=== PATIENT | male | born 1960 | race Caucasian/White ===

== ENCOUNTER 2016-08-11 18:18 | Emergency (ER) | payer MEDICARE, OTHER ==
[~2016-08-11 18:18] MED LIST: ALBUTEROL 0.5ML INH; ALBUTEROL17 GM; ALPRAZOLAM PO; AMITRYPTYLINE PO; ANTI INFLAM; ANTI-INFLAMMATORY; AUGMENTIN400 MG PO; BACLOFEN10 MG PO; BACTRIM DS TABL1 TA1 PO; BACTRIM DS TABL1 TAB PO; BACTROBAN22 GM TP; BENADRYL; BROMDAY1.7 ML OS; CLOBETASOL 0.0560 GM TOP; COLCHICINE; DAKIN'S MODIF1000 ML EXT; DICLOFENAC PO; DOXYCYCLINE150 MG PO; ENDOCET 5-3251 EACH PO; FLEXERIL PO; FLEXERIL10 MG PO; FLOMAX 0.4 MG PO; HYDROCODON-ACE1 EAC5 PO; IBUPROFEN; IBUPROFEN PO; IBUPROFEN200 M1 PO; INDOMETHACIN50 MG PO; INHALER; KEFLEX500 MG PO; LEVAQUIN PO; LOC PO; LORTAB 10-5001 EACH PO; LORTAB 7.5-5001 TAB PO; LORTAB 7.51 TAB 7.5/ PO; MUPIROCIN15 GM TP; NAFCILLIN SO2 G/VIAL IV; NICOTINE TRANSD21 MG EXT; NORCO 10/325 TA1 TAB PO; NORCO1 TAB 10/3 PO; PAXIL10 MG PO; PAXIL30 MG PO; PERCOCET 5-3251 TAB PO; PERCOCET 51 UDTAB 5/ PO; PERCOCET PO; PERCOCET5/325 PO; PREDNISOLONE AC 1% OS; PREDNISONE PO; PREDNISONE10 MG PO; PREDNISONE5 M1 PO; PROAIR HFA8.5 GM IH; SANTYL15 G1 TP; SILVADENE TOP; SOMA250 MG; SOMA250 MG PO; SPIRIVA18 MCG INH; ULTRAM PO; VICODIN PO; VOLTAREN75 MG PO; ZYVOX600 MG PO
== END 2016-08-11 18:55 | disposition home or self-care (01) ==
LOC: CED 18:18
DX: T81.4XXA Infection following a procedure, initial encounter (principal); N18.9 Chronic kidney disease, unspecified; J44.9 Chronic obstructive pulmonary disease, unspecified; F32.9 Major depressive disorder, single episode, unspecified; F17.200 Nicotine dependence, unspecified, uncomplicated; Z86.14 Personal history of Methicillin resistant Staphylococcus aureus infection; Z88.8 Allergy status to other drugs, medicaments and biological substances
CPT/HCPCS: 99282

== ENCOUNTER 2016-09-11 23:59 | Inpatient (IN) | payer MEDICARE, OTHER ==
--- NOTE | ~2016-09-11 | CR63 ---
[facility] A Service of [facility] RADIOLOGY TEXT RESULTS PATIENT: DELICIA WILSON JR LOCATION: [place] [address] : 56 UNIT #: [id number] AGE: [address]: Dick Jimenez MD SEX: M ORDER DR: [id number] [facility] [address] [facility]. [place], [place] [address] [id number] MR#: [id number] Acc #: [id number] NAME: DELICIA WILSON JR : 1960 SEX: M STUDY DATE/TIME: 09/12/2016 1:22 UNIT: CEDOF ROOM: [id number] STUDY DESCRIPTION: CR Chest 2 View Attending Physician: Dick Jimenez M.D. Ordering Physician: Delicia Rosales P.A.-C. Primary Care Physician: Primary Care Physician No MEDICAL IMAGING REPORT This report is preliminary unless electronic signature is present EXAM PA and lateral chest HISTORY Shortness of air, cough for two days. COMPARISON 09/12/2015. FINDINGS PA and lateral chest view of chest were obtained. Heart size and vascularity are normal. There is healed rib fracture of the left 7th and perhaps 8th ribs. There seems to be some density superimposed upon the left 8th rib suggesting a nodule measuring about 2 cm in diameter. This was not visible on the previous production technician film for the CT scan 03/07/2016 and was not seen on the chest x-ray 08/05/2015. Right lung is clear. There are compression fractures thoracic spine that are stable. IMPRESSION There is about a 2 cm area of focal density in the left mid lung superimposed upon on the left 8th rib that is new from prior studies. It could represent an infiltrate or mass. The most recent study is from May 2016 and I cannot see the abnormality on that exam, so it is likely an inflammatory or infectious process. Follow up chest x-ray to insure clearance or CT scan is recommended. Dictated by... Pete Martinez M.D. THIS IS AN ELECTRONICALLY VERIFIED REPORT [facility] A Service of [facility] RADIOLOGY TEXT RESULTS PATIENT: DELICIA WILSON JR LOCATION: [facility] 238-01 : 56 UNIT #: [id number] AGE: [address]: Dick Jimenez MD SEX: M ORDER DR: Pete Martinez M.D. at 09/12/2016 1:23 PM Jannie TD: 09/12/2016 09:14 JOB #: [id number] MEDICAL IMAGING REPORT Page 1 of 1 COPY
--- NOTE | ~2016-09-11 | CO ---
Unit #: [id number] #: [id number] Patient: DELICIA WILSON JR [id number] [address] [place], [place] [address] [id number] I MR#: [id number] NAME: DELICIA WILSON ROOM: 238 Age: 56 Sex: M Admission Date: 09/12/2016 : 1960 Attending Physician: Dick Jimenez M.D. Primary Care Physician: Meera Johnston M.D. Consultation Date: 09/12/2016 CONSULTATION REPORT REASON FOR EVAL Neutropenic fever; please evaluate. 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 We were planning to repeat the bone marrow. Presents now with severe neutropenia, fever and oral thrush. 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 Please see the chart for further details. Otherwise, past history is mainly remarkable for chronic kidney disease, microcytic anemia, history of BPH and rheumatoid arthritis. FAMILY HISTORY Positive for hypertension. Negative for blood dyscrasias. SOCIAL HISTORY Lives with his girlfriend. Smoking on and off and overall ill health. ALLERGIES [place] and Thorazine. CHRONIC MEDICATIONS Spiriva and albuterol. REVIEW OF SYSTEMS CONSTITUTIONAL: Overall ill health, joint aches and pains, weight loss, decreased appetite, mouth pain, right neck pain for the last month and a half with progressive weakness. Otherwise, eight or ten systems were within normal limits. PHYSICAL EXAMINATION NECK: Right-sided neck palpable, tender lymph nodes, submental area. MUSCULOSKELETAL: Evidence of degenerative arthritis, rheumatoid arthritis. Muscle atrophy. LUNGS: Crackles. No rales. ABDOMEN: No palpable liver. Questionable palpable spleen tip. No ascites. SKIN: No jaundice. HEENT: Pale. LYMPHATICS: No axillary or groin adenopathy. Unit #: [id number] #: [id number] Patient: DELICIA WILSON JR RUBBER THREAD SPOOLER: Grossly intact. RECTAL: Was not performed. DIAGNOSTIC STUDIES LABORATORY: Chemistry - Glucose 98, BUN 11, creatinine 0.8, sodium 134, potassium 4, chloride 99, CO2 26. ProTime 12.7, INR 1.1. Hemoglobin 10.9, hematocrit 32.6, white count 2,600, MCV 72, platelets 270,000, neutrophils 0.7%, lymphocytes 77%, monocytes 19%. IMPRESSION This 56-year-old gentleman who had a bone marrow, which showed T cell large granulocytic lymphocytic leukemia at about 20% in June of 2015, presents with severe neutropenia, fever, sepsis and possible fungal infection and intractable pain. PLAN Will proceed with Percocet 5/325 mg 1 p.o. q.6 round the clock, morphine 3 mg IV q.4 hours p.r.n. and proceed with a bone marrow aspirate, biopsy, flow cytometry. In the meantime, agree with broad-spectrum antibiotics and antifungal. Dictated by... Concha Sims/dave TD: 09/12/2016 13:39 JOB #: [id number] CONSULTATION REPORT Page 1 of 1 X Martin Walters MD CONSULTATION REPORT
--- NOTE | ~2016-09-11 | CT114 ---
[facility] A Service of [facility] RADIOLOGY TEXT RESULTS PATIENT: DELICIA WILSON JR LOCATION: A 238- : 56 UNIT #: [id number] AGE: [address]: Dick Jimenez MD SEX: M ORDER DR: [id number] [facility] [address] [facility]. [place], [place] [address] [id number] I MR#: [id number] Acc #: [id number] NAME: DELICIA WILSON : 1960 SEX: M STUDY DATE/TIME: 09/12/2016 8:41 UNIT: [facility] ROOM: 238 STUDY DESCRIPTION: CT Soft Tissue Neck W Cont Attending Physician: Dick Jimenez M.D. Ordering Physician: Delicia Rosales P.A.-C. Primary Care Physician: Primary Care Physician No MEDICAL IMAGING REPORT This report is preliminary unless electronic signature is present EXAM CT neck soft tissue with contrast HISTORY Left mid lung mass, abnormal chest x-ray, fever, right side chest pain, congestion for a year. Right-sided neck swelling for 2 days. History of leukemia. TECHNIQUE This CT exam was performed with one or more of the following radiation dose reduction techniques: automatic exposure control, adjustment of mA and/or kV according to patient size, and iterative reconstruction. COMMENT CT of the neck soft tissue performed during the intravenous administration of 100 mL of Isovue-370. There is no prior imaging of the neck soft tissue. Area of interest marked with a Gel-Cap. There is a chest CT from same day showing a spiculated noncalcified soft tissue mass left midlung. Please refer to that report. Patient has had cataract surgery on the left. The parotid glands are unremarkable. There are multiple small sialoliths associated with the left side submandibular gland. There is a mildly hyperdense heterogeneous lymph nodes seen level 2A jugular chain right side deep to the right side submandibular gland, displacing the gland forward. The structures together lie subjacent to the Gel-Cap. This lymph node measures 1.3 x 1.3 x 2.0 cm dimension and is enlarged by imaging criteria. The attenuation characteristics are also concerning. There are multiple bilateral smaller jugular chain nodes and submental and submandibular region lymph nodes. There is extensive stranding/edematous change in the soft tissue planes asymmetrically worse to the right neck. Normal fat planes are obliterated by this edematous change subjacent to the Gel-Cap. There is an abnormal appearance to the STS. [facility] A Service of [facility] RADIOLOGY TEXT RESULTS PATIENT: DELICIA WILSON JR LOCATION: [facility] 238-01 : 56 UNIT #: [id number] AGE: [address]: Dick Jimenez MD SEX: M ORDER DR: mucosal space with abnormal edematous change seen on the right side centered at the pre-epiglottic fat level of the hyoid bone. There is abnormal asymmetric enlargement of the mucosa in the right piriform sinus with displacement of the right side of the epiglottis to the left and some narrowing of the airway. Abnormal soft tissue fullness is seen at the right tongue base along the aryepiglottic fold on the right and extending inferiorly to the level of the true cords. There is some sclerosis also of the arytenoid cartilage on the right. The appearance raises concern for primary head and neck malignancy with the enlarged node on the right side jugular chain being metastatic disease. Please correlate further with direct visualization. Given the amount of edema seen, please exclude any concern for infection or inflammation or some type of a localized angioedema superimposed upon preexisting lymphadenopathy. I do not see a drainable fluid collection. The internal jugular veins are patent. Some vascular calcifications at the carotid bifurcations. Paranasal sinuses are clear. There is fluid or inflammatory change in the mastoid air cells bilaterally as well as at least in the right and probably to a lesser extent the left middle ear. Please correlate with physical exam findings. There may be some involvement of the thyroid cartilage with pathology though this is difficult to assess accurately on a CT scan. There is some irregularity of the ossification of the thyroid cartilage bilaterally. Evaluation of the visualized lungs shows some paraseptal emphysematous changes. Area of probable parenchymal scarring is seen at the right apex with an adjacent small nonspecific soft tissue nodule, noncalcified. In the superior segment of the right lower lobe partly included in field of view, there is noncalcified soft tissue mass with spiculation worrisome for a second area of malignancy. This area is about 1.4 x 1.7 cm with smaller nonspecific changes also seen in the adjacent right hilum. It is conceivable this patient has multifocal malignancies including both head and neck and lung cancers. IMPRESSION 1. Abnormal examination. There is asymmetric enlargement of the soft tissues mucosal space right side centered at about the right piriform sinus with extension superiorly to the level of the tongue base and inferiorly to the true cord level. The appearance is concerning for primary head and neck neoplasm and should be assessed further with direct visualization. There is some mild mass effect on the airway. 2. There is lymph node measuring up to 2.0 cm in long-axis dimension right side jugular chain 2A deep to the right-sided submandibular gland and displacing the gland somewhat anteriorly. A Gel-Cap has been placed such that it overlies the right side submandibular gland and approximately this lymph node and this may be related to the palpable abnormality. Additionally, there is extensive abnormal edema tracking throughout the soft tissues predominately at the right neck centered at about where the Gel-Cap has been placed. Loss of the normal fat planes is seen with replacement by edematous change. No drainable fluid collection is appreciated. This could be related to underlying malignancy but please exclude any clinical evidence for STS. [facility] A Service of [facility] RADIOLOGY TEXT RESULTS PATIENT: DELICIA WILSON JR LOCATION: [place] [address] : 56 UNIT #: [id number] AGE: [address]: Dick Jimenez MD SEX: M ORDER DR: infectious or inflammatory disease. It is conceivable there is some type of localized angioedema superimposed upon preexisting lymphadenopathy particularly if the patient is taking of medications. The patient provides a history of leukemia. Please correlate further with status of the patient's known leukemia and treatment. 3. Partial demonstration of lung masses. See discussion above. It is conceivable this patient has multifocal malignancies involving the head, neck and lung. See separate chest CT dictation. STAT * RESULT Dictated by... Riana Chavira M.D. THIS IS AN ELECTRONICALLY VERIFIED REPORT Riana Chavira M.D. at 09/12/2016 5:53 PM Nabor TD: 09/12/2016 10:58 JOB #: [id number] MEDICAL IMAGING REPORT Page 1 of 1 COPY
--- NOTE | ~2016-09-11 | CR72 ---
[facility] A Service of [facility] RADIOLOGY TEXT RESULTS PATIENT: DELICIA WILSON JR LOCATION: [facility] 326-01 : 56 UNIT #: [id number] AGE: [address]: Dick Jimenez MD SEX: M ORDER DR: [id number] [facility] [address] [facility]. [place], [place] [address] [id number] I MR#: [id number] Acc #: [id number] NAME: DELICIA WILSON JR : 1960 SEX: M STUDY DATE/TIME: 09/13/2016 10:18 UNIT: C2A ROOM: [facility] STUDY DESCRIPTION: CR Chest Single View Portable Attending Physician: Dick Jimenez M.D. Ordering Physician: Delicia Heart M.D. Primary Care Physician: No Primary Care Physician MEDICAL IMAGING REPORT This report is preliminary unless electronic signature is present EXAM Portable chest. HISTORY Post lung biopsy. Evaluate for pneumothorax. COMPARISON 09/12/2016 TECHNIQUE Single view of the chest was obtained. FINDINGS There is increased infiltrate around the mass on the left consistent with parenchymal hemorrhage from the biopsy. No pneumothorax is noted. IMPRESSION No evidence of a pneumothorax following lung biopsy. STAT * RESULT Dictated by... Jayy Hennessy M.D. THIS IS AN ELECTRONICALLY VERIFIED REPORT Jayy Hennessy M.D. at 09/13/2016 3:47 PM RLF/bernie TD: 09/13/2016 10:39 JOB #: [id number] [facility] A Service [facility] RADIOLOGY TEXT RESULTS PATIENT: DELICIA WILSON JR LOCATION: [facility] 326-01 : 56 UNIT #: [id number] AGE: [address]: Dick Jimenez MD SEX: M ORDER DR: MEDICAL IMAGING REPORT Page 1 of 1 COPY
--- NOTE | ~2016-09-11 | CO ---
Unit #: [id number] #: [id number] Patient: DELICIA WILSON JR [id number] [address] [address] [id number] I MR#: [id number] NAME: DELICIA WILSON JR ROOM: 238 Age: 56 Sex: M Admission Date: 09/12/2016 : 1960 Attending Physician: Dick Jimenez M.D. Consultation Date: 09/12/2016 CONSULTATION REPORT REASON FOR CONSULTATION Lung nodule and COPD. CHIEF COMPLAINT AND HISTORY OF PRESENT ILLNESS Patient basically is a 56-year-old male with a past medical history of COPD, rheumatoid arthritis, lymphocytic leukemia, and hepatitis C, who presents with the complaint of fever and thrush. He has been admitted with the impression of neutropenic fever, oral thrush, lymphocytic leukemia, and pneumonia versus left chest mass. I am seeing the patient at bedside. He is complaining of cough, shortness of breath, and increasing sputum production. He denies any nausea, vomiting, or diarrhea. REVIEW OF SYSTEMS Positive for pallor. No edema, no cyanosis, and no jaundice. The rest is per History of Present Illness. PAST MEDICAL HISTORY 1. Rheumatoid arthritis. 2. Neutropenia. 3. Chronic obstructive pulmonary disease. 4. Hepatitis C. 5. Methicillin-resistant Staphylococcus aureus abscess. 6. Hernia. 7. Right foot surgery. SOCIAL HISTORY One pack smoker per day. Denies alcohol and drug abuse. MEDICATIONS As per MAR and have been reviewed. ALLERGIES Reviewed. PHYSICAL EXAMINATION VITAL SIGNS: Temperature 98, pulse 87, respirations 12, and blood pressure 130/70. NEUROLOGICAL: Awake, alert, and oriented, with no neurological deficits. HEENT: Pupils equal, round, and reactive to light and accommodation. Extraocular movements are intact. NECK: Supple. No JVD. CHEST: Bilateral air entry, bilateral mild rhonchi. GASTROINTESTINAL: Nontender and soft. Bowel sounds positive. EXTREMITIES: No edema. Unit #: [id number] #: [id number] Patient: DELICIA WILSON JR SKIN: No rashes and no ulcers. LYMPHATICS: No lymphadenopathy. DIAGNOSTIC STUDIES LABORATORY: Reviewed. IMAGING: Reviewed. ASSESSMENT 1. Chronic obstructive pulmonary disease with acute exacerbation. 2. Neutropenic fever. 3. Left lung nodule. PLAN Get a CT-guided biopsy. Continue broad spectrum IV antibiotic. Add IV steroid and bronchodilator. GI and DVT prophylaxis. Will continue to monitor the patient. Please see orders for detailed plans. Thank you very much, Dr. Jimenez, for your kind consideration to involve me in taking care of this patient. Dictated by... Concha Fuentes TD: 09/12/2016 16:19 JOB #: [id number] CONSULTATION REPORT Page 1 of 1 X Lenny Gardner MD X CONSULTATION REPORT
--- NOTE | ~2016-09-11 | DS ---
Unit #: [id number] #: [id number] Patient: DELICIA WILSON JR [id number] [address] [address] [id number] I MR#: [id number] NAME: DELICIA WILSON JR ROOM: 238 Age: 56 Sex: M Admission Date: 09/12/2016 : 1960 Discharge Date: 09/12/2016 Attending Physician: Dick Jimenez M.D. Primary Care Physician: Swetha Primary Care Physician DISCHARGE SUMMARY CONSULTANTS 1. Dr. Martin Walters. 2. Dr. Gardner. ADMITTING DIAGNOSES 1. Fever. 2. Thrush. FURTHER DIAGNOSES 1. History of leukemia, now with again leukemia reaction. 2. Chronic obstructive pulmonary disease. 3. Hepatitis C. 4. History of rheumatoid arthritis. 5. Lung mass. 6. Right submandibular swelling. HISTORY OF PRESENTING ILLNESS Patient is a 56-year-old man with a past medical history of rheumatoid arthritis, leukemia, COPD, hepatitis C, was admitted mainly because of fever and oral thrush. HOSPITAL COURSE In the hospital course he was noted to have a white cell count of 2600 with lymphocytic predominance of 77.1 and neutrophils of 0.7 with absolute neutrophil counts of 0. He was complaining of pain in the right jaw and for further evaluation a CT of the soft tissue and a CT of the chest was done because there was concern for lung mass. CT of the soft tissue of the face revealed mildly hyperdense heterogeneous lymph nodes seen in the right submandibular gland and the lymph node measures about 1.3 x 1.3 x 2 cm. There are multiple bilateral small jugular chain nodes and submental and submandibular regional lymph nodes. There is extensive stranding or edematous change in the soft tissue planes, asymmetrically worse to the right neck. Normal fat planes are obliterated by these edematous changes. There is an abnormal appearance to the mucosal space around the preepiglottic fat level of the hyoid bone. There is abnormal asymmetric enlargement of the mucosa in the right piriform sinus with the displacement of the right side of the epiglottis to the left and some narrowing of the airway. Abnormal soft tissue fullness is seen at the right tongue base along the aryepiglottic fold on the right and extending into the true level vocal cords. The appearance raises a concern for primary head and neck malignancy with enlarged node on the right side being metastatic disease. No drainable fluid collection is seen. The internal jugular veins are patent. Paranasal sinuses are clear. Partial Unit #: [id number] #: [id number] Patient: DELICIA WILSON JR demonstration of a lung mass which was seen more in the CT of the chest. There is a 1.2 x 1 cm spiculated nodule in the left upper lobe. For further evaluation in the hospital course Dr. Walters was consulted. I had a prolonged conversation with Dr. Walters. Dr. Walters recommended ENT and Pulmonary evaluation. Unfortunately there is no ENT team who comes to this facility. We tried to reach an ENT team and they mentioned they will be unable to come and at this point we are trying to transfer him to [facility]. Dr. Lino is going to accept the patient. Also in the hospital course he was kept in isolation for neutropenia. He was started on broad-spectrum antimicrobials keeping into consideration his neutropenia including Levaquin, vancomycin and with a concern for Aspergillus we are sending serum galactomannan and I am starting him on posaconazole. I did send herpes serologies. They are pending at this point and we are empirically starting with a prophylactic acyclovir. Dr. Gardner from Pulmonary evaluated and he is planning to get a lung biopsy. Patient will be transferred to [facility] for further care. He needs isolation for prophylaxis mainly because he has neutropenia. DISCHARGE MEDICATIONS His discharge medications include: 1. Combivent 3 mL inhalation q.i.d. 2. Tylenol p.r.n. 3. Zofran 4 mg q.6 h. p.r.n. nausea and vomiting. 4. Nystatin 5 mL q.i.d. 5. Acyclovir 800 mg b.i.d. 6. Nicotine 21 mg topical q.a.m. 7. Posaconazole 200 mg p.o. t.i.d. 8. Morphine p.r.n. 9. Percocet p.r.n. 10. Levaquin 750 mg IV daily. 11. Vancomycin 1500 mg IV q.12 h. Pharmacy to dose. Total time spent in his care 35 minutes. Dictated by... Concha Gale TD: 09/12/2016 16:38 JOB #: [id number] DISCHARGE SUMMARY Page 1 of 1 X X DISCHARGE SUMMARY
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
--- NOTE | ~2016-09-11 | XA51 ---
[facility] A Service of [facility] & [facility] RADIOLOGY TEXT RESULTS PATIENT: DELICIA WILSON JR LOCATION: [facility] 326-01 : 56 UNIT #: [id number] AGE: [address]: Dick Jimenez MD SEX: M ORDER DR: [id number] [place] [id number] [facility]. [place], [place] [address] [id number] I MR#: [id number] Acc #: [id number] NAME: DELICIA WILSON : 1960 SEX: M STUDY DATE/TIME: 09/13/2016 9:21 UNIT: [address] ROOM: [facility] STUDY DESCRIPTION: XA BX Bone Marrow Attending Physician: Dick Jimenez M.D. Ordering Physician: Martin Walters M.D. Primary Care Physician: Primary Care Physician No MEDICAL IMAGING REPORT This report is preliminary unless electronic signature is present EXAM Bone marrow aspiration and biopsy HISTORY Neutropenia and anemia. FINDINGS Procedure, attendant risks and options were discussed with Mr. Wilson. He understands and wishes to proceed. The patient was placed in the prone position. The skin over the pelvis was cleansed with Chlorhexidine and the patient was subsequently sterilely draped. Masks and sterile gloves were utilized. Under local anesthesia am 11-gauge trocar was advanced under fluoroscopic control into the left iliac bone posteriorly. Aspiration and biopsy was performed. Total fluoroscopy time was 0.3 minutes. Total exposure 4 mGy. A single spot radiograph was captured. Bone marrow aspiration and biopsy was performed successfully. Needle was removed, hemostasis achieved. CONCLUSION Successful bone marrow aspiration and biopsy from the right iliac crest from a posterior approach. Dictated by... Delicia Heart M.D. THIS IS AN ELECTRONICALLY VERIFIED REPORT Delicia Heart M.D. at 09/13/2016 5:03 PM Carol TD: 09/13/2016 15:09 JOB #: [id number] MEDICAL IMAGING REPORT [facility] A Service of [facility] & [facility] RADIOLOGY TEXT RESULTS PATIENT: DELICIA WILSON JR LOCATION: [facility] 326-01 : 56 UNIT #: [id number] AGE: [address]: Dick Jimenez MD SEX: M ORDER DR: Page 1 of 1 COPY
--- NOTE | ~2016-09-11 | CR71 ---
[facility] A Service of [facility] & [facility] RADIOLOGY TEXT RESULTS PATIENT: DELICIA WILSON JR LOCATION: [facility] 326-01 : 56 UNIT #: [id number] AGE: [address]: Dick Jimenez MD SEX: M ORDER DR: [id number] [facility] [address] [facility]. [place], [place] [address] [id number] I MR#: [id number] Acc #: [id number] NAME: DELICIA WILSON : 1960 SEX: M STUDY DATE/TIME: 09/13/2016 12:45 UNIT: [address] ROOM: [facility] STUDY DESCRIPTION: CR Chest Single View Attending Physician: Dick Jimenez M.D. Ordering Physician: Delicia Heart M.D. Primary Care Physician: Primary Care Physician No MEDICAL IMAGING REPORT This report is preliminary unless electronic signature is present EXAM Portable chest 09/13/2016 HISTORY Followup lung biopsy. FINDINGS An AP portable view is obtained. Heart size remains normal. Redemonstrated is a infiltrate in the left midlung related to recent biopsy hemorrhage, this is unchanged. There is no pneumothorax seen. There are bilateral multiple old rib fractures. CONCLUSION Stable infiltrate in the left mid lung secondary to post-biopsy hemorrhage. Dictated by... Delicia Heart M.D. THIS IS AN ELECTRONICALLY VERIFIED REPORT Delicia Heart M.D. at 09/14/2016 9:31 AM AYDE/devante TD: 09/13/2016 18:00 JOB #: [id number] MEDICAL IMAGING REPORT Page 1 of 1 COPY
--- NOTE | ~2016-09-11 | CT134 ---
[facility] A Service of [facility] & [facility] RADIOLOGY TEXT RESULTS PATIENT: DELICIA WILSON JR LOCATION: [facility] 326-01 : 56 UNIT #: [id number] AGE: [address]: Dick Jimenez MD SEX: M ORDER DR: [id number] [facility] [address] [facility]. [place], [place] [address] [id number] I MR#: [id number] Acc #: [id number] NAME: DELICIA WILSON : 1960 SEX: M STUDY DATE/TIME: 09/13/2016 9:48 UNIT: [facility] ROOM: [facility] STUDY DESCRIPTION: CT Guide Attending Physician: Dick Jimenez M.D. Ordering Physician: Dick Jimenez M.D. Primary Care Physician: No Primary Care Physician MEDICAL IMAGING REPORT This report is preliminary unless electronic signature is present EXAM CT-guided left lung biopsy. DATE OF EXAM 09/13/2016 HISTORY SUPPLIED 1.5 cm stellate mass, left upper lobe. Procedure, attendant risks and options were discussed with Mr. Wilson, he understands and wishes to proceed. This examination was performed in CT and under CT guidance. Preliminary images were obtained and reviewed and appropriate site was chosen. The skin was then marked. TECHNIQUE NOTE: This CT exam was performed with one or more of the following radiation dose reduction techniques: automatic exposure control, adjustment of mA and/or kV according to patient size, and iterative reconstruction. The skin was prepped and draped with chlorhexidine solution and sterile drapes. Sterile gloves were utilized and a mask was worn for reverse isolation. The skin was anesthetized with 1% Xylocaine and a 17-gauge guide needle was advanced incrementally to the lesion and 18-gauge core specimens were obtained. Immediate touch-prep was more suggestive of a granulomatous or inflammatory process; however, the core specimens are pending. The needle was removed. The patient monitored for hemoptysis post-procedure which was managed conservatively. Followup chest radiograph was remarkable only for a small amount of perilesional hemorrhage. The patient was returned to the hurd in stable condition. Permanent CT images were acquired. Conscious sedation was administered during the procedure, approximate [facility] A Service of [facility] RADIOLOGY TEXT RESULTS PATIENT: DELICIA WILSON JR LOCATION: [facility] 326-01 : 56 UNIT #: [id number] AGE: [address]: Dick Jimenez MD SEX: M ORDER DR: conscious sedation time was [address] CONCLUSION [address]-guided core biopsy of the left upper lobe mass. Dictated by... Delicia Heart M.D. THIS IS AN ELECTRONICALLY VERIFIED REPORT Delicia Heart M.D. at 09/13/2016 5:03 PM AYDE/helen TD: 09/13/2016 16:22 JOB #: [id number] MEDICAL IMAGING REPORT Page 1 of 1 COPY
--- NOTE | ~2016-09-11 | CT55 ---
[facility] A Service of [facility] & [facility] RADIOLOGY TEXT RESULTS PATIENT: DELICIA WILSON JR LOCATION: [facility] 238-01 : 56 UNIT #: [id number] AGE: [address]: Dick Jimenez MD SEX: M ORDER DR: [id number] [facility] [address] [facility]. [place], [place] [address] [id number] I MR#: [id number] Acc #: [id number] NAME: DELICIA WILSON : 1960 SEX: M STUDY DATE/TIME: 09/12/2016 8:41 UNIT: C2 ROOM: 238 STUDY DESCRIPTION: CT Chest W Con Attending Physician: Dick Jimenez M.D. Ordering Physician: Delicia Rosales P.A.-C. Primary Care Physician: Primary Care Physician No MEDICAL IMAGING REPORT This report is preliminary unless electronic signature is present EXAM CT chest with contrast HISTORY Abnormal chest x-ray with left midlung mass. Complains of right-sided chest pain. COMPARISON Portable chest 09/12/[address] chest 03/07/2016. TECHNIQUE Axial images performed through the chest following IV contrast. 3-D coronal and sagittal reconstructed images reviewed at a workstation. This CT exam was performed with one or more of the following radiation dose reduction techniques: automatic exposure control, adjustment of mA and/or kV according to patient size, and iterative reconstruction. FINDINGS Examination demonstrates interval development of a 1.2 x 1.7 cm spiculated nodule which is felt to be in the left upper lobe. This was not present on the patient's study of February 2016. Given the irregular margins and interval development, does raise the concern for possible neoplasm and further pulmonary workup is recommended. This may be amenable to bronchoscopic biopsy. There is a small amount of right middle lobe and right lower lobe atelectasis or scarring. Background emphysema. No effusions. No other mass lesions identified. There is a calcified granuloma abutting the pleural surface right lower lobe. There is a small amount of calcified and noncalcified mediastinal lymphadenopathy. Heart, aorta and pulmonary vessels are unremarkable. Osseous structures remarkable for stable T7 and T9 compression fractures. Extrathoracic soft tissues unremarkable. [facility]. [facility] A Service of [facility] RADIOLOGY TEXT RESULTS PATIENT: DELICIA WILSON JR [facility] [id number] : 56 UNIT #: [id number] AGE: [address]: Dick Jimenez MD SEX: M ORDER DR: IMPRESSION 1. New 1.2 x 1.7 cm spiculated nodule in the left upper lobe bordering the major fissure. This represents a new finding from the February 2016 study and does raise the concern for possible neoplasm, though this could be potentially inflammatory or infectious in nature. Further pulmonary evaluation is recommended. 2. Right middle lobe and right lower lobe atelectasis and scarring with some peribronchitis and/or peribronchial inflammatory changes particularly within the right lower lobe. 3. Background centrilobular emphysema. 4. Not mentioned above, questionable narrowing of the mid esophagus. This could just be related to collapsed esophagus. Correlate clinically for symptoms referable with dysphagia. Dictated by... Gladis Johnston M.D. THIS IS AN ELECTRONICALLY VERIFIED REPORT Gladis Johnston M.D. at 09/12/2016 4:56 PM Daryl TD: 09/12/2016 12:15 JOB #: [id number] MEDICAL IMAGING REPORT Page 1 of 1 COPY
[2016-09-12 02:05] LABS: BASOPHIL% 0.7 % (0-2.5); DIFF IND YES; EOSINOPHIL% 1.7 % (0.0-7.0); HEMATOCRIT 32.6 % (38.0-50.0); HEMOGLOBIN 10.9 gm/dL (13.0-16.0); LYMPHOCYTE% 77.1 % (17.0-45.0); MEAN CELL VOLUME 72.2 FL (83-96); MEAN CORPUSCULAR HEMOGLOBIN 24.2 PG (28-34); MEAN CORPUSCULAR HGB CONC 33.5 g/dL (30-36); MEAN PLATELET VOLUME 7.5 FL (6.5-11.5); MONOCYTE# 0.5 X10e3 (0-1.0); MONOCYTE% 19.8 % (3.0-12.0); NEUTROPHIL% 0.7 % (40-75); PLATELET COUNT 270 X10e3 (140-420); RED BLOOD COUNT 4.52 X10e (3.90-5.60); RED CELL DISTRIBUTION WIDTH 17.2 % (11.0-15.5); WHITE BLOOD COUNT 2.6 X10e3 (4.0-10.5)
[2016-09-12 02:20] LABS: ALBUMIN SERUM 3.2 g/dL (3.5-5.0); BILIRUBIN, DIRECT 0.1 mg/dL (0.0-0.2); BILIRUBIN,INDIRECT 0.5 mg/dL (0.0-0.9); BILIRUBIN,TOTAL 0.6 mg/dL (0.2-2.0); BUN/CREATININE RATIO 13.75; CALCIUM SERUM 8.5 mg/dL (8.4-10.2); CREATININE SERUM 0.8 mg/dL (0.6-1.4); GLOM FILT RATE Estimated 98.5 mL/min (>60); PROTEIN TOTAL SERUM 7.5 g/dL (6.0-8.3)
[2016-09-12 02:52] LABS: ANISOCYTOSIS MOD; MICROCYTOSIS MOD; PLATELET ESTIMATE NORMAL (NORMAL)
[2016-09-12 04:41] LABS: URINE SOURCE CLEAN CATCH
[2016-09-12 04:44] LABS: URINE APPEARANCE CLEAR; URINE BILIRUBIN NEG (NEG); URINE BLOOD TRACE (NEG); URINE COLOR YELLOW; URINE GLUCOSE NEG (NEG); URINE KETONE NEG (NEG); URINE LEUKOCYTE ESTERASE NEG (NEG); URINE NITRATE NEG (NEG); URINE PROTEIN NEG (NEG); URINE SPECIFIC GRAVITY 1.008 (1.003-1.035); URINE UROBILINOGEN 0.2 MG/DL (NEG)
[2016-09-12 04:47] LABS: CULTURE INDICATED? NO; URINE BACTERIA AUWI NEG (NEGATIVE); URINE SQUAMOUS EPITHELIAL CELL NONE SEEN /[HPF]; UWBCS1 AUWI 0-2 (0-5)
[2016-09-12] MEDS ORDERED: SPIRIVA18 MCG (10:25)
[2016-09-12] MEDS ORDERED: ALBUTEROL20 ml INH (10:26)
[2016-09-12 14:05] LABS: EOSINOPHIL% 1.6 % (0.0-7.0); HEMOGLOBIN 9.9 gm/dL (13.0-16.0); LYMPHOCYTE# 1.4 X10e3 (1.0-3.5); LYMPHOCYTE% 72.9 % (17.0-45.0); MEAN CELL VOLUME 73.2 FL (83-96); MEAN CORPUSCULAR HEMOGLOBIN 24.1 PG (28-34); MEAN CORPUSCULAR HGB CONC 32.9 g/dL (30-36); MEAN PLATELET VOLUME 7.1 FL (6.5-11.5); MONOCYTE# 0.5 X10e3 (0-1.0); MONOCYTE% 25.1 % (3.0-12.0); NEUTROPHIL% 0.4 % (40-75); PLATELET COUNT 221 X10e3 (140-420); RED BLOOD COUNT 4.11 X10e (3.90-5.60); RED CELL DISTRIBUTION WIDTH 17.1 % (11.0-15.5); WHITE BLOOD COUNT 1.9 X10e3 (4.0-10.5)
[2016-09-12 14:13] LABS: DIFF IND NO
[2016-09-13 06:36] LABS: BASOPHIL% 0.2 % (0-2.5); EOSINOPHIL% 0.4 % (0.0-7.0); HEMATOCRIT 31.3 % (38.0-50.0); HEMOGLOBIN 10.2 gm/dL (13.0-16.0); LYMPHOCYTE# 0.5 X10e3 (1.0-3.5); LYMPHOCYTE% 89.1 % (17.0-45.0); MEAN CELL VOLUME 73.3 FL (83-96); MEAN CORPUSCULAR HEMOGLOBIN 23.9 PG (28-34); MEAN CORPUSCULAR HGB CONC 32.6 g/dL (30-36); MEAN PLATELET VOLUME 7.8 FL (6.5-11.5); MONOCYTE% 1.9 % (3.0-12.0); NEUTROPHIL% 8.4 % (40-75); PLATELET COUNT 236 X10e3 (140-420); RED BLOOD COUNT 4.26 X10e (3.90-5.60)
[2016-09-13 06:38] LABS: WHITE BLOOD COUNT 0.6 X10e3 (4.0-10.5)
[2016-09-13 06:39] LABS: DIFF IND NO
[2016-09-13 06:48] LABS: PARTIAL THROMBOPLASTIN TIME 32.6 SECONDS (23.5-31.3); PROTHROMBIN TIME (PATIENT) 10.9 SECONDS (9.6-11.5)
[2016-09-15 20:19] LABS: HSV 1 DNA Not Detected (Not Detected); HSV 2 DNA Not Detected (Not Detected)
== END 2016-09-14 02:14 | DRG 841 ==
LOC: CED 23:59 → CEDOF 09-12 04:40 → C2A 09-12 09:20 → C3A PCU 09-13 11:50
PROVIDERS: Internal Medicine; Internal Medicine Medical Oncology; Physician Assistant
PROC: 07DR3ZX Extraction of Iliac Bone Marrow, Percutaneous Approach, Diagnostic (ICD-10-PCS; principal; 2016-09-13)
DX: C91.Z0 Other lymphoid leukemia not having achieved remission (principal); R64 Cachexia; D70.9 Neutropenia, unspecified; B37.0 Candidal stomatitis; J44.1 Chronic obstructive pulmonary disease with (acute) exacerbation; M05.00 Felty's syndrome, unspecified site; Z68.1 Body mass index [BMI] 19.9 or less, adult; M06.9 Rheumatoid arthritis, unspecified; N18.9 Chronic kidney disease, unspecified; N40.0 Benign prostatic hyperplasia without lower urinary tract symptoms; R59.1 Generalized enlarged lymph nodes; F17.210 Nicotine dependence, cigarettes, uncomplicated; J45.909 Unspecified asthma, uncomplicated; F32.9 Major depressive disorder, single episode, unspecified; B19.20 Unspecified viral hepatitis C without hepatic coma; R60.9 Edema, unspecified; R91.8 Other nonspecific abnormal finding of lung field; R50.81 Fever presenting with conditions classified elsewhere
CPT/HCPCS: 36415; 70491; 71010; 71020; 71260; 77002; 77012; 80048; 80076; 81003; 83605; 85025; 85610; 85730; 86695; 87040; 87305; 87529; 87651; 87806; 88173; 88305; 88311; 88312; 88313; 94640; 94760; 96361; 96365; 96366; 96375; 99144; 99153; 99285; J0692; J1956; J2250; J2270; J2405; J2930; J3010; J3370; Q9967

== ENCOUNTER 2016-11-21 15:21 | Emergency (ER) | payer OTHER ==
[~2016-11-21 15:21] MED LIST changes: +ALBUTEROL20 ml INH; +SPIRIVA18 MCG
== END 2016-11-21 16:45 | disposition home or self-care (01) ==
LOC: CED 15:21
DX: R13.10 Dysphagia, unspecified (principal); J44.9 Chronic obstructive pulmonary disease, unspecified; F17.200 Nicotine dependence, unspecified, uncomplicated; Z88.8 Allergy status to other drugs, medicaments and biological substances; Z86.19 Personal history of other infectious and parasitic diseases
CPT/HCPCS: 99283

== ENCOUNTER → 2016-12-12 | Outpatient (CLI) | payer OTHER ==
[~2016-12-12] MED LIST changes: +ALBUTEROL17 GM INH; +DIFLUCAN100 MG PO; +HYDROCODON-ACE1 EAC7 PO; +NICOTINE PATCH1 EACH TD; +PATIENT'S PHARMACY; +PREDNISONE10 M1 PO; +PRO-AMATINE5 M2 PO; +SPIRIVA RESPIMAT4 G1 INH
--- NOTE | ~2016-12-12 | CR97 ---
[facility] A Service of [facility] & [facility] RADIOLOGY TEXT RESULTS PATIENT: DELICIA WILSON JR LOCATION: [facility] : 56 UNIT #: [id number] AGE: [address]: Quan Dewey MD SEX: M ORDER DR: [id number] [facility] [address] [facility]. [place], [place] [address] [id number] O MR#: [id number] Acc #: [id number] NAME: DELICIA WILSON : 1960 SEX: M STUDY DATE/TIME: 12/12/2016 10:25 UNIT: [facility] ROOM: STUDY DESCRIPTION: CR Esophagram Attending Physician: Quan Dewey M.D. Referring Physician: Quan Dewey M.D. Ordering Physician: Quan Dewey M.D. Primary Care Physician: No Primary Care Physician MEDICAL IMAGING REPORT This report is preliminary unless electronic signature is present EXAM Esophagram, 12/12/2016. INDICATIONS Cough and dysphagia. Patient unable to eat. Symptoms over the last 3 months. TECHNIQUE A single contrast esophagram was performed. Double contrast exam was not performed due to patient's discomfort. 27 images were obtained. Fluoro time is 1.1 units. COMPARISON The study is compared with neck and chest CT scans dated 09/12/2006. FINDINGS The study does demonstrate a small hiatal hernia. The esophagus shows normal motility. No clear rings or strictures are seen. No definitive mucosal lesions are identified. Patient was unable to ingest a barium tablet. Retrospective review of the prior chest CT may indicate esophagitis, and this could be partially responsible for the patient's symptoms. Prior neck CT was concerning for head and neck neoplasm, which could also be responsible for symptoms. Consider upper endoscopy for further evaluation of the esophagus, if needed. IMPRESSION Limited single contrast exam. No stricture. Motility is normal. There is a small hiatal hernia. Patient's symptoms may be related to abnormal findings on prior neck and chest CT from 09/12/2016. I cannot exclude the possibility of esophagitis, especially when viewed with the prior chest CT. Upper endoscopy may be beneficial for further evaluation of the STS. [facility] A Service of [facility] & [facility] RADIOLOGY TEXT RESULTS PATIENT: DELICIA WILSON JR LOCATION: [facility] #: [id number] : 56 UNIT #: [id number] AGE: [address]: Quan Dewey MD SEX: M ORDER DR: esophagus. Dictated by... Jayy Monteiro Jr., M.D. THIS IS AN ELECTRONICALLY VERIFIED REPORT Jayy Monteiro Jr., M.D. at 12/13/2016 7:09 AM JACINTO/diane TD: 12/12/2016 18:04 JOB #: [id number] MEDICAL IMAGING REPORT Page 1 of 1 COPY
== END | disposition home or self-care (01) ==
LOC: CRAD 09:46
DX: R13.10 Dysphagia, unspecified (principal)
CPT/HCPCS: 74220

== ENCOUNTER 2016-12-14 12:00 | Inpatient (IN) | payer OTHER ==
[~2016-12-14] VITALS: Ht 175.3 cm; Wt 56.3 kg
--- NOTE | ~2016-12-14 | DS ---
Unit #: [id number] #: [id number] Patient: DELICIA WILSON JR [id number] [address] [address] [id number] I MR#: [id number] NAME: DELICIA WILSON JR ROOM: 564 Age: 56 Sex: M Admission Date: 12/14/2016 : 1960 Discharge Date: 12/21/2016 Attending Physician: Jose Aldridge M.D. Primary Care Physician: No Primary Care Physician DISCHARGE SUMMARY PERTINENT HISTORY AND HOSPITAL COURSE The patient is a 56-year-old man with a history significant for leukemia, dysphagia, lung mass, chronic kidney disease and COPD who presented to the emergency room with generalized fatigue, decreased oral intake and difficulty swallowing. During his admission, gastroenterology was consulted for his dysphagia. He underwent an EGD that demonstrated severe esophagitis in the distal and mid esophagus, possible Melissa. There was also a fistulous tract opening about 1 cm in size in the upper to midesophageal junction. The scope could not pass through this area, and it could possibly be a blind loop versus tracheoesophageal fistula. Pulmonary was consulted, and he underwent a bronchoscopy, which demonstrated no evidence of tracheoesophageal fistula. Thoracic surgery was consulted. The patient is planned to follow up with thoracic surgery as an outpatient. During his admission his Melissa esophagitis was treated with Diflucan. ID was consulted and recommended a total of 14 days. The patient will be discharged home on 10 more days of Diflucan. At discharge the patient is comfortable, ambulating independently. Vitals are stable. Able to tolerate food without difficulty. DISCHARGE MEDICATIONS 1. Albuterol 2 puffs t.i.d. as needed. 2. Spiriva 1 puff once daily. 3. Nicotine transdermal, change patch daily. 4. Midodrine 5 mg p.o. t.i.d. 5. Diflucan 100 mg tab 1 p.o. once daily. DISCHARGE DIAGNOSES 1. Esophageal diverticulum. 2. Chronic kidney disease. 3. Chronic obstructive pulmonary disease. 4. Chronic pneumonia. 5. History of lung mass in left upper lobe on computed axial tomography scan in August of 2016. DISCHARGE INSTRUCTIONS 1. The patient is to follow up with thoracic surgery consultation on 01/12/[address] Centeno's office at [facility]. Unit #: [id number] #: [id number] Patient: STEVE JR,DELICIA W 2. Follow up with pulmonary consultation. Dr. Ruben Mejía. 3. Follow up with primary care physician. Dictated by... Concha Christy TD: 12/22/2016 12:08 JOB #: [id number] DISCHARGE SUMMARY Page 1 of 1 X X DISCHARGE SUMMARY
--- NOTE | ~2016-12-14 | CO ---
Unit #: [id number] #: [id number] Patient: DELICIA WILSON JR [id number] [address] [address] [id number] I MR#: [id number] NAME: DELICIA WILSON JR ROOM: 564 Age: 56 Sex: M Admission Date: 12/14/2016 : 1960 Attending Physician: Naomi Garcia M.D. Primary Care Physician: Swetha Primary Care Physician Consultation Date: 12/15/2016 CONSULTATION REPORT REASON FOR CONSULT COPD management. CHIEF COMPLAINT Profound weakness and shortness of breath. HISTORY OF PRESENT ILLNESS This is a very pleasant 56-year-old male with past medical history significant for leukemia, dysphagia, lung mass, hepatitis, chronic kidney disease, COPD, and smoking who presented to the emergency room with profound weakness and shortness of breath. 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 However, he stated that every time his white blood count drops he feels ill and gets very fatigued. The patient stated that he felt profoundly fatigued for the last couple days. He admitted coughing with sputum production, but he said it was mainly clear to light yellowish. He denied any fever, chills, or night sweats. No chest pain. No nausea, vomiting, or diarrhea. PAST MEDICAL HISTORY 1. Recurrent neutropenic fever. 2. Lung mass. 3. Chronic respiratory failure. 4. T-cell large granulocytic lymphocytic leukemia. 5. Dysphagia. 6. Hepatitis. 7. Chronic kidney disease. 8. Benign prostatic hypertrophy. 9. Chronic obstruction pulmonary disease. PAST SURGICAL HISTORY 1. Lung biopsy. 2. Skin graft. 3. Irrigation and debridement of the left elbow. 4. Surgery of necrotic wound, left lower extremity. 5. Right foot incision and drainage of abscess. 6. Cystoscopy. SOCIAL HISTORY The patient currently lives with his brother. He smokes less than a pack of cigarettes daily. No history of alcohol or drug abuse. FAMILY HISTORY Hypertension. Unit #: [id number] #: [id number] Patient: DELICIA WILSON JR ALLERGIES [place], Thorazine. HOME MEDICATIONS 1. Hydrocodone/acetaminophen. 2. Spiriva. 3. Ventolin. REVIEW OF SYSTEMS A 12-point review of systems was obtained and was negative except for what was mentioned in the HPI. PHYSICAL EXAMINATION GENERAL: Patient does not appear in acute distress; however, he appeared worn out. VITAL SIGNS: Blood pressure is 105/62, respiratory rate 16, O2 saturation 98% on room air. HEENT: Atraumatic, normocephalic. PERRLA. EOMI. NECK: Supple. No JVD. No lymphadenopathy. CHEST: Bilateral rhonchi and scattered wheezing. HEART: S1, S2. No murmur, gallops, or rubs. ABDOMEN: Soft, nontender. Bowel sounds are positive. No hepatosplenomegaly. EXTREMITIES: No edema or cyanosis. SKIN: No rashes. CENTRAL NERVOUS SYSTEM: Awake, alert, oriented x3. No focal motor/sensory deficit. DIAGNOSTIC STUDIES LABORATORY: Creatinine 0.6, sodium 132, bicarbonate 20. White blood count 0.6, hemoglobin 10.3. IMAGING: X-ray showing mild generalized pulmonary hyperinflation and interstitial fibrosis. ASSESSMENT 1. Chronic obstructive pulmonary disease exacerbation. 2. Neutropenia. 3. Generalized fatigue. 4. Hepatitis. 5. Chronic kidney disease. 6. Hyponatremia. 7. Dysphagia. PLAN 1. Chest x-ray from this admission as compared to the one from August: The mass that was biopsied is invisible on this current chest x-ray. At this point, I will obtain another CT chest to assess his lung parenchyma better and assess for any (1) or occult lung malignancy. 2. Will start patient on a bronchodilator and IV steroids. 3. Mucolytics and antitussive. 4. Esophagram is concerning for stricture and patient will undergo an endoscopy tomorrow. 5. Gentle IV hydration. 6. Watch electrolytes closely. 7. Bone marrow biopsy at some point. Unit #: [id number] #: [id number] Patient: DELICIA WILSON JR 8. Deep venous thrombosis/gastrointestinal prophylaxis. I would like to thank Dr. Cole for allowing me to be part of this patient's care. Dictated by... Concha Langston TD: 12/16/2016 09:48 JOB #: [id number] CONSULTATION REPORT Page 1 of 1 X JOSH ADEN MD CONSULTATION REPORT
--- NOTE | ~2016-12-14 | CR72 ---
[facility] A Service of [facility] & [facility] RADIOLOGY TEXT RESULTS PATIENT: DELICIA WILSON JR LOCATION: [facility] : 56 UNIT #: [id number] AGE: [address]: Jennifer Cole MD SEX: M ORDER DR: [id number] [place] [address] [facility]. [place], [place] [address] [id number] MR#: [id number] Acc #: [id number] NAME: DELICIA WILSON JR : 1960 SEX: M STUDY DATE/TIME: 12/14/2016 12:53 UNIT: CEDOF ROOM: [id number] STUDY DESCRIPTION: CR Chest Single View Portable Attending Physician: Jennifer Cole M.D. Ordering Physician: Rajwinder Potter M.D. Primary Care Physician: Primary Care Physician No MEDICAL IMAGING REPORT This report is preliminary unless electronic signature is present EXAM Portable chest 12/14/2016, [facility] HISTORY 56-year-old male patient short of air, weakness x1 week. Patient has history of leukemia, COPD. COMPARISON Portable chest 09/14/2016 FINDINGS AP upright portable chest demonstrates normal heart size. Lungs are mildly hyperinflated with mild generalized interstitial prominence. There are multiple bilateral healed rib fractures noted. I see no infiltrates and no lung mass at this time. Costophrenic angles are preserved. No evidence for pneumothorax. IMPRESSION Mild generalized pulmonary hyperinflation and interstitial fibrosis. A stable finding with no acute chest abnormality. Dictated by... Jamie Reese M.D. THIS IS AN ELECTRONICALLY VERIFIED REPORT Jamie Reese M.D. at 12/15/2016 7:14 AM JBB/devante TD: 12/14/2016 19:45 JOB #: [id number] MEDICAL IMAGING REPORT Page 1 of 1 COPY
--- NOTE | ~2016-12-14 | CT57 ---
[facility] A Service of [facility] RADIOLOGY TEXT RESULTS PATIENT: DELICIA WILSON JR LOCATION: [facility] : 56 UNIT #: [id number] AGE: [address]: ALESSIA YUAN V SEX: M ORDER DR: [id number] [place], [place] [address] [id number] MR#: [id number] Acc #: [id number] NAME: DELICIA WILSON JR : 1960 SEX: M STUDY DATE/TIME: 12/15/2016 20:37 UNIT: [facility] ROOM: [facility] STUDY DESCRIPTION: CT Chest Wo Cont Attending Physician: Naomi Garcia M.D. Ordering Physician: Physician Non-Staff Primary Care Physician: No Primary Care Physician MEDICAL IMAGING REPORT This report is preliminary unless electronic signature is present EXAM CT chest without contrast. INDICATIONS Shortness of air and cough for the past week. PROCEDURE Unenhanced CT of the chest. This CT exam was performed with one or more of the following radiation dose reduction techniques: automatic exposure control, adjustment of mA and/or kV according to patient size, and iterative reconstruction. COMPARISON 09/12/2016 FINDINGS Emphysema. Scattered areas of scarring. 1.3 cm nodule in the left upper lobe previously measured 1.7 cm. No new dense consolidation. No adenopathy. There is diffuse esophageal thickening more apparent than on the previous study. Abdomen without contrast: No acute findings are seen in the included upper abdomen. No aggressive appearing bone lesion. Compression deformities of T7 and T9 are unchanged. IMPRESSION 1. Emphysema. 2. No acute findings. 3. Nodular density in the left upper lobe is slightly smaller than on 09/12/2016. 4. Diffuse esophageal thickening. Correlate for the possibility of esophagitis. [facility] A Service [facility] RADIOLOGY TEXT RESULTS PATIENT: DELICIA WILSON JR LOCATION: [facility] : 56 UNIT #: [id number] AGE: [address]: ALESSIA YUAN V SEX: M ORDER DR: Dictated by... Rosalio Anaya M.D. THIS IS AN ELECTRONICALLY VERIFIED REPORT Rosalio Anaya M.D. at 12/20/2016 8:32 AM ESEQUIELD/jules TD: 12/16/2016 05:20 JOB #: [id number] MEDICAL IMAGING REPORT Page 1 of 1 COPY
--- NOTE | ~2016-12-14 | CO ---
Unit #: [id number] #: [id number] Patient: DELICIA WILSON JR [id number] [address] [address] [id number] I MR#: [id number] NAME: DELICIA WILSON JR ROOM: 564 Age: 56 Sex: M Admission Date: 12/14/2016 : 1960 Attending Physician: Jose Aldridge Consultation Date: 12/20/2016 CONSULTATION REPORT REASON FOR CONSULTATION Leukopenia and esophagitis. HISTORY OF PRESENT ILLNESS The patient is a 56-year-old male, history of leukemia, dysphagia, lung mass, hepatitis, chronic renal disease, BPH, COPD, admitted with weakness and shortness of breath. No fevers, chills, cough, congestion, nausea, vomiting, diarrhea, chest pain, shortness of breath, headaches, or dizziness. Evaluation included upper GI studies which showed possibility of esophageal diverticulum versus fistula. Bronchoscopy was also done. There was no evidence of fistula. Thoracic Surgery has been asked to see for possible diverticulum. The scope did reveal extensive esophagitis and biopsies compatible with Melissa. He is on fluconazole. He also has leukopenia with ANC of more than 500. Infectious Disease consultation requested for further evaluation and antibiotic management. PAST MEDICAL HISTORY 1. Lung mass. 2. Leukemia. 3. Respiratory failure. 4. Dysphagia. 5. Hepatitis. 6. Renal disease. 7. Benign prostatic hypertrophy. 8. COPD. SOCIAL HISTORY Noncontributory. FAMILY HISTORY Noncontributory. ALLERGIES Allergic to lithium and Thorazine. MEDICATIONS Current medications reviewed in the macro, which include fluconazole. PHYSICAL EXAMINATION GENERAL: Comfortable, does not seem to be in any distress. VITAL SIGNS: Temperature 97.5, pulse 57, respirations 18, blood pressure 110/68. HEENT: Unremarkable. NECK: Supple. Unit #: [id number] #: [id number] Patient: DELICIA WILSON JR CHEST: Clear to auscultation. HEART: Normal S1 and S2. ABDOMEN: Soft, nontender. EXTREMITIES: Shows no edema. DIAGNOSTIC STUDIES LABORATORY RESULTS: BUN 19, creatinine 0.6. WBC 1.3, hemoglobin 10, platelets 22. Yesterday had 73% neutrophils. Initial urinalysis, unremarkable. Sputum and blood cultures and urine cultures have been negative. ASSESSMENT 1. Leukopenia with ANC of more than 500. 2. Leukemia. 3. Melissa esophagitis. 4. Esophageal diverticulum. PLAN At this time, the patient is clinically stable. Recommend to keep him on fluconazole for a total of 14 days. Follow up on thoracic Surgery recommendation. Pancytopenia, most likely because of leukemia. Hematology is following. Further recommendation depending upon the course. I would like to thank Dr. Werner for requesting us to participate in the care of this patient. We will follow this patient along with you. Dictated by... Concha Calero/ken TD: 12/22/2016 00:59 JOB #: [id number] CONSULTATION REPORT Page 1 of 1 X Bryce Olson MD X CONSULTATION REPORT
--- NOTE | ~2016-12-14 | CO ---
Unit #: [id number] #: [id number] Patient: DELICIA WILSON JR [id number] [address] [address] [id number] I MR#: [id number] NAME: DELICIA WILSON JR ROOM: 564 Age: 56 Sex: M Admission Date: 12/14/2016 : 1960 Attending Physician: Naomi Garcia M.D. Primary Care Physician: Primary Care Physician No Consultation Date: 12/14/2016 CONSULTATION REPORT REASON FOR CONSULTATION Possible adrenal insufficiency. HISTORY OF PRESENT ILLNESS This is a 56-year-old male with history of multiple medical problems including leukemia, lung mass, chronic kidney disease, COPD, who has been admitted with the generalized weakness, shortness of air, and weight loss about 40 pounds over the last 2 to 3 months. On his labs, he was found to have the low cortisol level of 5. I have been asked to see the patient for further evaluation. Note, the patient on admission had a sodium of 127 with potassium of 3.4, and blood pressure of 98/68. He is also being started on Solu-Medrol currently receiving 80 mg every 12 hours. PAST MEDICAL HISTORY History of lung mass, T-cell large granular lymphocytic leukemia, history of hepatitis, chronic kidney disease, BPH, COPD, history of continues tobacco use. PAST SURGICAL HISTORY I and D, left elbow; lung biopsy; surgery, necrotic wound on left lower extremity; right foot incision and drainage for abscess. SOCIAL HISTORY Currently, he lives with his brother, smokes less than pack per day. No alcohol. FAMILY HISTORY Noncontributory. ALLERGIES [place] and Thorazine. MEDICATIONS Home medications; hydrocodone, Spiriva, Ventolin. Current medication list is reviewed. The patient is on Solu-Medrol 80 q.12. REVIEW OF SYSTEMS A 12-point review of system was completed, please see HPI. PHYSICAL EXAMINATION GENERAL: He looks awake and alert, in no acute respiratory distress. VITAL SIGNS: Temperature 94, pulse is 50, blood pressure is 126/65. HEENT: EOMI. Pupils equally reactive to light. Unit #: [id number] #: [id number] Patient: DELICIA WILSON JR NECK: Supple. No thyromegaly noted. CHEST: Decreased air entry. CVS: Regular rhythm. No murmurs. ABDOMEN: Soft and nontender. Bowel sounds positive. NEUROLOGIC: Nonfocal. Moving all extremities. DIAGNOSTIC STUDIES LABORATORY RESULTS: Reviewed. Cortisol is 5. BUN and creatinine are normal, sodium is 135, potassium 3.7, CO2 is 23. ASSESSMENT 1. Hyponatremia. 2. Hypotension. 3. Abnormal weight loss. PLAN The patient has a low serum cortisol level of 5, but the patient is already on the Solu-Medrol cannot exclude the possibility of adrenal insufficiency at this point. We will check the ACTH stimulation test when the patient is off the Solu-Medrol. We will check the patient's TSH and free T4. Thanks again for consultation. Dictated by... Concha Rojas/ken TD: 12/17/2016 00:36 JOB #: [id number] CONSULTATION REPORT Page 1 of 1 X Trevor Kenny MD X CONSULTATION REPORT
--- NOTE | ~2016-12-14 | CO ---
Unit #: [id number] #: [id number] Patient: DELICIA WILSON JR [id number] [facility]. [place], [place] [address] [id number] I MR#: [id number] NAME: DELICIA WILSON JR ROOM: 564 Age: 56 Sex: M Admission Date: 12/14/2016 : 1960 Attending Physician: Jose Aldridge M.D. Primary Care Physician: No Primary Care Physician CONSULTATION REPORT ADMITTING PHYSICIAN Dr. Garcia. REQUESTING PHYSICIAN Dr. Armani Munroe, Gastroenterology. REASON FOR CONSULTATION Consult regarding possible esophageal diverticulum. HISTORY OF PRESENT ILLNESS Mr. Delicia Wilson is a 56-year-old male, who presented to [facility] on December 14, 2016, with complaints of a three-month history of dysphagia mostly with meats and breads. He states his symptoms worsened over the last month until he felt "as if he were dying." He was evaluated at [facility] by primary care in the emergency room, then admitted by the hospitalist group. He was evaluated by Dr. Armani Munroe and underwent an EGD on December 16, 2016, which revealed a possible fistulous tract opening about 1 cm in size in the upper to mid esophageal junction. He underwent an esophagogram prior to that procedure which revealed no evidence of stricture and due to patient's inability to swallow barium, the procedure was aborted and we are unable to clearly show a blind pouch or diverticulum as well as possible aspiration. He has been followed here at the hospital by the speech and swallow team who have recommended a video swallow but patient has been reluctant to participate in that study. The patient does state that he is in much better shape than when he came in the hospital. He is able to swallow food including pizza that he had for lunch today, and he is asking to be discharged without any further testing. The patient was evaluated in August by Dr. Dewey of [facility] at [facility] and underwent laryngoscopy and evaluation and actually had a followup appointment on December 05, 2016 as an outpatient. He was to undergo an esophagram which he did on December 12, 2016, but did not follow up with Dr. Abbas but did end up in the emergency room at [facility]. Patient also is followed by Dr. Martin Walters in regard to T-cell large granulocytic leukemia. He has frequent neutropenia. He has rheumatoid arthritis, chronic kidney disease, benign prostatic hypertrophy, and COPD. He has been followed by Dr. Mejía and Dr. Gardner while here at [facility] in regard to his COPD. He is also noted to have a lung mass measuring 1.2 x 1.7 cm in the left upper lobe on CT scan in August 2016 which has not yet been fully evaluated. PAST MEDICAL HISTORY As in history of present illness. Unit #: [id number] #: [id number] Patient: DELICIA WILSON JR PAST SURGICAL HISTORY 1. Status post laryngoscopy in August 2016 and in November 2016, both under the direction of Dr. Dewey. 2. Skin graft. 3. Left elbow debridement. 4. Left lower extremity and foot wound debridement. 5. Cystoscopy. FAMILY AND SOCIAL HISTORY Patient lives with his brother. He smokes one pack of cigarettes per day and has for 40 years. He denies any illicit drug use or alcohol. REVIEW OF SYSTEMS A 14-point review of systems has been completed and patient is negative with the exception of symptoms mentioned in the history of present illness to include a three-month history of weakness, fatigue, decreased dietary intake. He has cough with yellow sputum which has resolved. He has dyspnea on exertion with activity which has resolved since admission. He has low-grade fever intermittently at home. PHYSICAL EXAMINATION VITAL SIGNS: Temperature is 98.8, heart rate 58, respiratory rate 18, blood pressure 127/65. GENERAL: Mr. Delicia Wilson is a well-groomed 56-year-old male, fair historian regarding his own medical history as he completely leaves out the fact that he has been seen by the [facility] in the last month in regard to the same issues he is having here at [facility]. HEENT: Normocephalic. No facial asymmetry. Sclerae anicteric. NECK: Supple. Trachea midline. No thyromegaly. No palpable cervical, supraclavicular, occipital, or submandibular lymphadenopathy noted. BREATH/CHEST: He has equal chest wall expansion. No increase in AP diameter. PULMONARY: Auscultation of his lungs found them to be clear. No rales, rhonchi, or wheezes. He has decreased breath sounds in the bases. CARDIOVASCULAR: S1, S2 without rub, without murmur. No S3 or S4. No peripheral edema. ABDOMEN: Large, round, soft. Bowel sounds positive. Nontender. No pulsatile masses. No hepatosplenomegaly noted. EXTREMITIES: His extremities are warm and dry. There is no edema, no clubbing, and no cyanosis. MUSCULOSKELETAL: He moves all his extremities well with equal strength. His gait is steady. DIAGNOSTIC STUDIES LABORATORY: Chemistry: BUN 19, creatinine 0.7, sodium 137, potassium 4.2, chloride 101, CO2 of 30. Albumin is 2.1. Hematology: WBC is 1.3, hemoglobin 10, hematocrit 31.4, platelets 288,000. Neutrophils are 1.3, lymphocytes 0.3. Blood cultures on December 14 are negative. Specimens from bronchoscopy are no growth. Sputum: No growth. Urine is no growth. IMAGING: Esophagogram has been discussed between Dr. Owens, Dr. Monteiro, Dr. Centeno, and Dr. Munroe. Dr. Centeno has also spoke to Dr. Walters in regard to patient's status with his T-cell large granulocytic leukemia. CTs of the chest and esophagogram both reviewed. Unit #: [id number] #: [id number] Patient: DELICIA WILSON JR [place] IMPRESSION 1. Esophagogram does not adequately discern a diverticulum; however, Dr. Munroe has visually seen an opening in the esophagus with a possible blind pouch on esophagogastroduodenoscopy. Patient is much stronger and able to swallow much better since his admission and treatment with Diflucan. Would like to repeat the video swallow. Patient is requesting that be done as an outpatient and has refused that request by speech therapy. We discussed with patient the possibility of gastrostomy tube placement. He said no one has discussed that with him in the past. He is open to discussion but not on this hospital admission. 2. Large granulocytic T-cell leukemia currently being monitored by Dr. Walters. 3. Hepatitis C. 4. Rheumatoid arthritis. 5. Chronic kidney disease. 6. Benign prostatic hypertrophy. 7. Chronic obstructive pulmonary disease. 8. Chronic neutropenia. 9. History of lung mass in left upper lobe on CT in August 2016. PLAN Plan will be for patient to return in office with Dr. Centeno on January 12, 2017 at 1:30 p.m. at the [facility] office for evaluation. Prior to that appointment, Dr. Centeno will be setting the patient up for a video swallow. We have obtained records from Dr. Dewey' office today. Dictated by... Corinna Vasquez A.P.R.N. for Lavelle Centeno M.D. JEFF/camilo TD: 12/20/2016 15:44 JOB #: [id number] CONSULTATION REPORT Page 1 of 1 X Corinna Vasquez REVIEW RN X CONSULTATION REPORT
--- NOTE | ~2016-12-14 | HP ---
Unit #: [id number] #: [id number] Patient: DELICIA WILSON JR [id number] [address] [address] [id number] I MR#: [id number] NAME: DELICIA WILSON JR ROOM: 60186 Age: 56 Sex: M Admission Date: 12/14/2016 : 1960 Attending Physician: Jennifer Cole M.D. HISTORY AND PHYSICAL CHIEF COMPLAINT Weakness, short of breath. HISTORY OF PRESENT ILLNESS The patient is a 56-year-old male with a past medical history of leukemia, dysphagia, lung mass, hepatitis, chronic kidney disease, BPH, and COPD, who presented to the emergency department for evaluation of the above. The patient states that he has been feeling bad for at least the past week to 10 days. He states that he has been feeling increasingly generally weak. He denies any falls and no syncopal episodes. He states that he has had body-wide pain. He reports increasing shortness of breath and productive cough. He has had chills but no documented fever. He has lost about 40 pounds over the past couple of months. He states that he has had night sweats. He is currently seeing Dr. Dewey regarding difficulty swallowing. He denies any urinary symptoms. He has had nausea and loose stool. He denies any vomiting within the past 24 hours. He reports five to six bouts of loose stool within the past 24 hours. In the emergency department, initial temperature was 98.1, pulse 112, and blood pressure 98/68. Chest x-ray showed nothing acute. Laboratory is notable for a white blood cell count of 1.8 with an absolute neutrophil count of 558. Sodium is 127 and potassium 3.4. He was given two liters of normal saline. He is being admitted to [facility] for evaluation and further treatment. PAST MEDICAL HISTORY 1. Admission to [facility] September 12, 2016, for neutropenic fever. He was ultimately transferred to [facility] for ENT evaluation. He also underwent lung biopsy for lung mass (no records). 2. History of lung mass. CT of the chest from September 12, 2016, showed a 1.2 x 1.7 cm spiculated nodule in the left upper lobe. The patient states that he had a biopsy and it was benign. Again, there are no records. The patient has seen Dr. Gardner in the past. 3. History of chronic respiratory failure. The patient states that he "returned his oxygen," so he is no longer on oxygen at home. 4. T-cell large granulocytic lymphocytic leukemia followed by Dr. Walters. The patient last saw him on November 17, 2016. 5. Dysphagia currently being evaluated by Dr. Dewey. The patient had an esophagram December 12, 2016, that showed no stricture, normal motility, and small hiatal hernia. Cannot exclude esophagitis. Upper endoscopy may be helpful. 6. History of hepatitis. Unit #: [id number] #: [id number] Patient: DELICIA WILSON JR 7. Chronic kidney disease. The patient's creatinine, the highest I see is 2.7 on November 18, 2011. 8. Benign prostatic hypertrophy. 9. Chronic obstructive pulmonary disease with continued tobacco abuse. PAST SURGICAL HISTORY 1. Lung biopsy (no records). 2. Skin graft to left elbow. 3. Irrigation and debridement of left elbow. 4. Surgery for necrotic wound left lower extremity. 5. Right foot incision and drainage of abscess. 6. Cystoscopy. SOCIAL HISTORY The patient is currently living with his brother. He smokes less than a pack of cigarettes daily. He denies alcohol or illicit drug use. He is on disability. FAMILY HISTORY Notable for his mother having hypertension. ALLERGIES [place] and Thorazine. HOME MEDICATIONS 1. Hydrocodone and acetaminophen 5/325 at 4 times daily p.r.n. 2. Spiriva inhaled daily. 3. Ventolin 2 puffs 2-3 times daily p.r.n. REVIEW OF SYSTEMS A complete review of systems is negative except as indicated in the History of Present Illness. PHYSICAL EXAMINATION VITAL SIGNS: Temperature is 98.1, pulse 112, respirations 16, blood pressure 98/68, and oxygen saturation is 97% on room air. GENERAL: Patient is a male who is chronically ill appearing in no acute distress. HEENT: Head is atraumatic. Mucous membranes are dry. NECK: Supple. Trachea is midline. CARDIOVASCULAR: Regular rate and rhythm. LUNGS: Inspiratory and expiratory wheezes. Breathing is not labored with conversation. ABDOMEN: Soft and nontender with bowel sounds present in all four quadrants. EXTREMITIES: Nontender with no pedal edema. NEUROLOGIC: Patient is awake and alert. He follows commands. PSYCHIATRIC: Mood and affect are normal. Patient is cooperative. SKIN: Skin of examined areas is warm and dry. DIAGNOSTIC STUDIES LABORATORY: Arterial blood gas shows a pH of 7.47, PCO2 of 29.6, and PO2 of 75.8 on room air. Troponin is less than 0.05. Lactic acid is 1.6. Comprehensive metabolic notable for sodium of 127, potassium 3.4, chloride 95, glucose 146, magnesium 2.1, and albumin 2.7. INR is 1.2. Complete blood count notable for white blood cell count of 1.8, absolute neutrophil count is 558, and hemoglobin and hematocrit 11.7 and 35.4, respectively. Urinalysis notable for 1+ protein, 3+ blood, 5-10 red blood cells, and 1+ Unit #: [id number] #: [id number] Patient: DELICIA WILSON JR. IMAGING: Chest x-ray shows no acute abnormality. CARDIOLOGY: EKG shows normal sinus rhythm with a rate of 99 beats per minute. ASSESSMENT The patient is a 56-year-old male with: 1. General weakness. 2. Neutropenia with an absolute neutrophil count of 558. 3. T-cell large granulocytic lymphocytic leukemia followed by Dr. Walters. 4. Hyponatremia. The patient's sodium is 127 today. It has been as low as 124 on September 26, 2014. The patient appears to be hypovolemic today. He has had diarrhea but no vomiting. He received two liters of normal saline in the emergency department. 5. Hypokalemia with potassium of 3.4. 6. Dysphagia. The patient has seen Dr. Dewey and had an esophagram yesterday with results as noted above. 7. Lung mass per CT of the chest from September 12, 2016. The patient had a biopsy at [facility] (no records). 8. Chronic obstructive pulmonary disease with continued tobacco abuse. The patient appears to be having an exacerbation today. 9. History of hepatitis. 10. Chronic kidney disease. 11. Benign prostatic hypertrophy. PLAN 1. Admit for observation to intermediate level. 2. N.p.o. except medications until speech evaluation. 3. Speech Therapy to evaluate and treat. 4. Consult Dr. Munroe regarding dysphagia. 5. Normal saline at 75 mL/hour. 6. Bedrest. 7. Fall precautions. 8. PT/OT to evaluate and treat. 9. Consult Dr. Walters regarding neutropenia and leukemia. 10. Urine sodium and osmolality. 11. Serum osmolality. 12. Check magnesium level. 13. Potassium/magnesium protocol. 14. Get records from [facility] including path report from lung biopsy. 15. Blood cultures x2. 16. Sputum culture and sensitivity. 17. Doxycycline 100 mg p.o. b.i.d. for acute bronchitis pending Dr. Mejía's recommendations. 18. Solu-Medrol 80 mg IV q.12 hour, first dose now. 19. DuoNebs q.[address] Mejía regarding COPD exacerbation. 21. Urine culture and sensitivity on urine in the lab. 22. SCDs for DVT prophylaxis. 23. Repeat labs in the morning. 24. Regarding code status, the patient is a Do Not Resuscitate. 1. Dictated by Jennifer Cole M.D. Unit #: [id number] #: [id number] Patient: DELICIA WILSON JR AW/am TD: 12/14/2016 18:29 JOB #: [id number] HISTORY AND PHYSICAL Page 1 of 1 X Jennifer Cole MD X HISTORY AND PHYSICAL
--- NOTE | ~2016-12-14 | OR ---
Unit #: [id number] #: [id number] Patient: DELICIA WILSON JR [id number] [address] [address] [id number] I MR#: [id number] NAME: DELICIA WILSON JR ROOM: 564 Date of Procedure: Admission Date: 12/14/2016 Surgeon: Lenny Gardner M.D. : 1960 Attending Physician: Naomi Garcia M.D. Primary Care Physician: Swetha Primary Care Physician PROCEDURE OPERATIVE NOTE PROCEDURE PERFORMED Diagnostic bronchoscopy. INDICATION Possibility of tracheoesophageal fistula. DETAILS OF THE PROCEDURE After taking the consent from the patient explaining the risks and benefits, the patient was placed in a proper position. He was given about 40 to 50 mL of methylene blue mixed in tap water and patient drank the liquid before the procedure. Then, we proceeded with regular bronchoscope which was introduced through the oral cavity. Vocal cords appeared to be symmetrically moving towards the midline. Trachea was normal. Natasha was sharp. No methylene blue was seen in the whole tracheobronchial tree. We examined the right upper, right middle, right lower lobe, left upper lobe, lingula and left lower lobe. No endobronchial lesion was found. There were thick, mucoid secretions which therapeutically suctioned. Then, we did a bronchoalveolar lavage in the right middle lobe area. The patient tolerated the procedure very well. No evidence of tracheoesophageal fistula was found. Dictated by... Concha Fuentes/silvia TD: 12/19/2016 06:59 JOB #: [id number] PROCEDURE OPERATIVE NOTE Page 1 of 1 X Lenny Gardner MD X PROCEDURE OPERATIVE NOTE
--- NOTE | ~2016-12-14 | FU ---
[facility] Nutrition Therapy DATE: 12/20/16 Patient: DELICIA WILSON JR Physician: BROOKS Address: [address] [place] [address] RD Room/Bed: [address] [place] [address], Zip: [place] [address] Admit Date: 12/14/16 Date of : 56 Height: 5 9 Weight: 124 56.3 NUTRITION MONITORING/FOLLOW-UP: Reason: PT SEEN FOR FOLLOW-UP DX: WEAKNESS, COPD EXAC Anthropometrics: 5'9.75", WT: 124# (56 KG), BMI: 17.9 -ADMIT WEIGHT: 118# Labs: GLU: 132, ALB: 2.1 (12/16/16) Meds: SOLU-MEDROL, PROTONIX, KCL, NACL I&O's: 2555/2400 Skin: NO KNOWN SKIN ISSUES Estimated Nutrition Needs: INCREASED NEEDS 2' PT UNDERWEIGHT Assessment: CHART REVIEWED AND EVENTS NOTED. PT SEEN FOR FOLLOW-UP. PT REPORTS GOOD PO INTAKE AND APPETITE, NOTING CONSUMING 100% BREAKFAST AND LUNCH TODAY (PER RD OBSERVATION, PT CONSUMED 100% LUNCH). PT REPORTS DRINKING AN ENSURE SHAKE DAILY. THIS RD ENCOURAGED PT TO DRINK ENSURE SHAKES BETWEEN MEALS FOR ADDITIONAL KCAL AND PROTEIN. PT REPORTED NO DIET QUESTIONS AT THIS TIME. RD TO CONTINUE TO FOLLOW/REMAIN AVAILABLE. Dx: INADEQUATE PROTEIN-ENERGY INTAKE R/T DYSPHAGIA NOTED, PMH, CURRENT CONDITION AEB LOW BMI NOTED (17.1), 72%IBW, ~40# WEIGHT LOSS IN PAST 2 YEARS.-ACTIVE Intervention: 1. REGULAR DIET + 6 SMALL MEALS + ENSURE SHAKES TID Monitoring, Evaluation and Goals: 1. ORAL INTAKE; CONSUME/TOLERATE >50% OF MEALS AND SUPPLEMENTS W/NO SIGNS OF DYSPHAGIA-MET/IN PROGRESS 2. WEIGHTS; PROMOTE GRADUAL WEIGHT GAIN; PREVENT FURTHER WEIGHT LOSS-MET/IN PROGRESS 3. LABS; WNL-IN PROGRESS MONITOR ABOVE GOALS Recommendations: 1. CONTINUE TO ENCOURAGE ADEQUATE KCAL AND PROTEIN INTAKE RD WILL F/U PER PROTOCOL PT IS MILD/MODERATELY COMPROMISED [facility] Nutrition Therapy DATE: 12/20/16 Patient: DELICIA WILSON JR Physician: BROOKS Address: [address] [place] [address] RD Room/Bed: [address] [place] [address], Zip: [place] [address] Admit Date: 12/14/16 Date of : 56 Height: 5 9 Weight: 124 56.3 Respectfully, ARTURO CARREON MS, RD, LD [facility] Nutrition[facility] cc: client file
--- NOTE | ~2016-12-14 | MAL ---
[facility] Nutrition Therapy DATE: 12/15/16 Patient: DELICIA WILSON JR Physician: BROOKS Address: [address] [place] [address] PAT Room/Bed: [address], Zip: [place] [address] Admit Date: 12/14/16 Date of : [birth year] Height: 5 9 Weight: 117 53.2 PHYSICAL MALNUTRITION ASSESSMENT Energy Intake, Chronic Illness Moderately reduced: <75% needs for >/=1 month Severely reduced: </=50% needs for >/=1 month Energy Intake Comment: PT REPORTS DECREASED PO INTAKE AND APPETITE 2' DIFFICULTY SWALLOWING PAST SEVERAL WEEKS. PT ADDS "FOOD GETS STUCK, CHOKES". Weight Loss, Chronic Illness Moderate: 20% past 1 year Severe: >20% past 1 year Weight Loss, Comment: PT REPORTS LOSING ~40# WITHIN PAST 2 YEARS. Physical Findings Body Fat and Muscle Mass Moderate: (suggested) some loss of subqutaneous fat and/or muscle mass Severe: (obvious) significant muscle wasting and/or loss of subcutaneous fat Physical Findings Functional Capacity Moderate: (suggested) reduced functional capacity Severe: (obvious) bedridden or otherwise significantly reduced functional capacity Physical Findings Comment: PER RD OBSERVATION, PT TO HAVE HOLLOW/SCOOPING TEMPORAL, PROTRUDING AND PROMINENT SHOULDERS, CLAVICLES AND SCAPULA. NO MUSCLE DEFINITION IN BICEPS AND TRICEPS AND CALVES. ALSO, OBSERVED IS DARK CIRCLES AND SLIGHTLY HOLLOW APPEARANCE OF EYES, SOMEWHAT APPARENT CHEST AND DRY EYES, HAIR AND SKIN. -PT REPORTS WIDESPREAD BODY-ACHES AND PROGRESSIVE WEAKNESS. Dietitian Malnutrition Assessment Score: MOD/SEVERELY COMPROMISED Chronic illness moderate Chronic illness severe Malnutrition Survey Comment: SEE RD ASSESSMENT ON 12/15/16 Respectfully, ARTURO CARREON MS, RD, LD [facility] Nutrition Therapy DATE: 12/15/16 Patient: DELICIA WILSON JR Physician: BROOKS Address: [address] [place] [address] Room/Bed: [address], Zip: [place] [address] Admit Date: 12/14/16 Date of : [birth year] Height: 5 9 Weight: 117 53.2 Food and Nutritional Services [facility] cc: client file
--- NOTE | ~2016-12-14 | CO ---
Unit #: [id number] #: [id number] Patient: DELICIA WILSON JR [id number] [address] [place], [place] [address] [id number] I MR#: [id number] NAME: DELICIA WILSON JR ROOM: 564 Age: 56 Sex: M Admission Date: 12/14/2016 : 1960 Attending Physician: Naomi Garcia M.D. Consultation Date: 12/15/2016 CONSULTATION REPORT REASON FOR CONSULTATION Dysphagia. HISTORY OF PRESENTING ILLNESS Mr. Wilson is a 56-year-old gentleman, he was admitted yesterday with complaints of weakness and shortness of breath. He has been having trouble swallowing for last 3 months. He says food get stuck and chokes him pointing to his throat area and upper esophagus. He has been not able to eat. He does feel hungry; however, he denies any painful swallowing. He denies any abdominal pain. Denies any change in bowel movements. He denies any hematemesis, melena, or bright red blood in the stool. Of note, he has a barium swallow done, which shows no stricture; however, small hernia. Recent chest CT scan had shown possibility of esophagitis also. Upper endoscopy was recommended. PAST MEDICAL HISTORY Significant for leukemia, history of lung mass, chronic respiratory failure, chronic kidney disease, and COPD. SOCIAL HISTORY Lives with mother. Smoker. Denies any alcohol or drug abuse. FAMILY HISTORY No history of colon cancer. ALLERGIES To lithium and Thorazine. MEDICATIONS Included hydrocodone, Spiriva, and Ventolin. REVIEW OF SYSTEMS Complete 10-point review of systems was done, which is unremarkable other than as mentioned above. PHYSICAL EXAMINATION VITAL SIGNS: Stable. Temperature 98, pulse 112, respirations 16, blood pressure of 98/68 HEENT: Pupils equal and reactive. Sclerae anicteric. Oral mucosa moist. NECK: No JVD. No lymphadenopathy. CHEST: Scattered rhonchi. CARDIOVASCULAR: Regular rate and rhythm. No murmurs. ABDOMEN: Soft, nontender, and nondistended. EXTREMITIES: Without clubbing, cyanosis, or edema. Unit #: [id number] #: [id number] Patient: DELICIA WILSON JR NEUROLOGIC: Grossly intact. SKIN: Warm and dry. DIAGNOSTIC STUDIES LABORATORY RESULTS: Chemistry showed normal BUN and creatinine. Sodium of 132. LFTs are normal. Coags are normal. CBC with a hemoglobin of 10.3, white count of 0.6, and platelet count of 164. ASSESSMENT AND PLAN 1. The patient with significant dysphagia, possible esophagitis versus others on imaging. We will need an upper endoscopy for evaluation. Given the patient is severely neutropenic, I will hold off until his white cell counts are better. Speech do a bedside speech evaluation for feeding recommendations until that. If the esophagogastroduodenoscopy is negative, a video swallow will be followed with us. 2. Leukemia. 3. Weight loss. 4. Lung mass. 5. Chronic obstructive pulmonary disease. Thank you, Dr. Cole for this interesting consult. We will follow along. Dictated by... Concha Bailey/ken TD: 12/15/2016 15:40 JOB #: [id number] CONSULTATION REPORT Page 1 of 1 X Armani Munroe MD X CONSULTATION REPORT
--- NOTE | ~2016-12-14 | EKG ---
PATIENT: DELICIA WILSON UNIT #: [id number] Ventricular Rate: 99 BPM Atrial Rate: 99 BPM P-R Interval: 130 ms QRS Duration: 80 ms Q-T Interval: 316 ms QTC Calculation(Bezet): 405 ms P [place]: 44 degrees Calculated R [place]: 65 degrees Calculated T [place]: 71 degrees Diagnosis Line: Normal sinus rhythm Diagnosis Line: Normal ECG Diagnosis Line: When compared with ECG of 06-JUL-2015 19:31, Diagnosis Line: No significant change was found Diagnosis Line: Confirmed by ARTI WATTERS MD ([id number]) on Diagnosis Line: 12/16/2016 7:28:18 AM INTERPRETING MD: JANENE AGARWAL
--- NOTE | ~2016-12-14 | A ---
[facility] Nutrition Therapy DATE: 12/15/16 Patient: DELICIA WILSON Physician: BROOKS [facility] [address] Room/Bed: [address] [place] [address], Zip: [place] [address] Admit Date: 12/14/16 Date of : 56 Height: 5 9 Weight: 117 53.2 NUTRITIONAL ASSESSMENT: REASON: LOW BMI + ONE NUTRITION RISK PT RE: POOR PO INTAKE PT IS 56 Y.O. MALE ADMITTED FOR WEAKNESS, COPD EXAC PMH: PVD, BPH, CKD, GOUT, COPD, ARTHRITIS W/NEUTROPENIA, HEPATITIS, LEUKEMIA, DYSPHAGIA Anthropometrics: HT: 5'9.75" (PER PT), WT: 118# (54 KG), BMI: 17.1, 72%IBW Labs: GLU: 257, NA+:132, CA+:8.1, ALB: 2.1 Meds: SOLU-MEDROL, KCL, MAG SULFATE, NACL I/O & Bowel function: 705/400 Skin Integrity: DRY SKIN NOTED ALL OVER BODY Estimated Nutrition Needs: INCREASED NEEDS 2' PT UNDERWEIGHT, WEIGHT LOSS NOTED, POOR PO INTAKE AND APPETITE NOTED, PMH Assessment: CHART REVIEWED AND EVENTS NOTED. PT SEEN FOR LOW BMI + ONE NUTRITION RISK PT RE: POOR PO INTAKE. PT REPORTS DECREASED PO INTAKE 2' DIFFICULTY SWALLOWING PAST FEW WEEKS. PT ADDS "FOOD GETS STUCK AND I TEND TO CHOKE". PER RN AND CHART, PT NOTED TO BE WEAK PAST 10 DAYS, EXPERIENCING BODY-WIDE PAIN. PT REPORTS LOSING ~40# WITHIN PAST [address] ENCOURAGED SMALL FREQUENT HIGH KCAL AND PROTEIN MEALS + SUPPLEMENT INTAKE, PT AGREED TO ENSURE SHAKES TID, RD TO ORDER. OF NOTE, DRIVER TRAINEE FOLLOWING AND DEEMS PT APPROPRIATE FOR REGULAR DIET + THINS AT THIS TIME. PT REPORTED NO DIET QUESTIONS AT THIS TIME. PT ADDED, "I NEED HELP SWALLOWING". RD TO FOLLOW. SEE RECOMMENDATIONS BELOW. Dx: INADEQUATE PROTEIN-ENERGY INTAKE R/T DYSPHAGIA NOTED, PMH, CURRENT CONDITION AEB LOW BMI OF 17.1, 72%IBW, ~40# WEIGHT LOSS NOTED WITHIN PAST 2 YEARS. Intervention: 1. REGULAR + THINS PER DRIVER TRAINEE 2. ENSURE SHAKES TID 3. 6 SMALL MEALS Monitoring, Evaluation and Goals: 1. ORAL INTAKE; CONSUME/TOLERATE >50% OF MEALS AND SUPPLEMENTS W/NO SIGNS OF DYSPHAGIA 2. WEIGHTS; PROMOTE GRADUAL WEIGHT GAIN; PREVENT FURTHER WEIGHT LOSS 3. LABS; WNL: LYTES MONITOR ABOVE GOALS [facility] Nutrition Therapy DATE: 12/15/16 Patient: DELICIA WILSON Physician: BROOKS Address: [address] Room/Bed: [address] [place] [address], Zip: [place] [address] Admit Date: 12/14/16 Date of : 56 Height: 5 9 Weight: 117 53.2 Recommendations: 1. PLEASE ORDER EB ENSURE SHAKES TID W/MEALS FOR ADDITIONAL PROTEIN AND KCAL PT IS UNDERWEIGHT AND REQUIRES INCREASED NEEDS 2. PLEASE ADD 6 SMALL MEALS TO CURRENT DIET ORDER TO BETTER FACILITATE PO INTAKE 3. APPRECIATE FAMILY AND STAFF TO ENCOURAGE ADEQUATE PO INTAKE 4. IF DRIVER TRAINEE RE-EVALS AND DEEMS PT NOT APPROPRIATE FOR PO INTAKE, CONSULT RD FOR RECOMMENDATIONS RD WILL F/U PER PROTOCOL PT IS MOD/SEVERELY COMPROMISED Respectfully, ARTURO CARREON MS, RD, LD Food and Nutritional Services [facility] cc: client file
--- NOTE | ~2016-12-14 | OR ---
Unit #: [id number] #: [id number] Patient: DELICIA WILSON JR [id number] [address] [address] [id number] I MR#: [id number] NAME: DELICIA WILSON JR ROOM: 564 Date of Procedure: 12/16/2016 Admission Date: 12/14/2016 Surgeon: Armani Munroe M.D. : 1960 Attending Physician: Naomi Garcia M.D. Primary Care Physician: Primary Care Physician No OPERATIVE REPORT PROCEDURE PERFORMED Esophagogastroduodenoscopy with brushings from the esophagus. INDICATIONS The patient with significant dysphagia, undergoing evaluation with upper endoscopy. MEDICATIONS Monitored anesthesia. POSTOPERATIVE FINDINGS 1. Severe esophagitis in the distal and mid esophagus, possible Melissa, brushings taken. 2. Mild gastritis. 3. There was a fistulous tract opening about 1 cm in size in the upper to midesophageal junction. The scope could not pass through this thing. It could be possibly a blind loop versus a tracheoesophageal fistula. PLAN Case discussed with with Pulmonology. Consider possible bronchoscopy for further evaluation. DESCRIPTION OF PROCEDURE The patient was explained of the procedure, risks, and benefits. He was brought to the endoscopy room. Propofol anesthesia was given. The scope was passed down the mouth and esophagus, stomach, duodenum, and distal duodenum. Findings as described. Brushings taken. Gently, the scope was pulled out. He tolerated it well. Dictated by... Concha Bailey/ken TD: 12/17/2016 11:22 JOB #: [id number] Unit #: [id number] #: [id number] Patient: DELICIA WILSON JR OPERATIVE REPORT Page 1 of 1 X Armani Munroe MD X PROCEDURE OPERATIVE NOTE
[~2016-12-14 12:00] MED LIST changes: -ALBUTEROL17 GM INH; -DIFLUCAN100 MG PO; -HYDROCODON-ACE1 EAC7 PO; -NICOTINE PATCH1 EACH TD; -PATIENT'S PHARMACY; -PREDNISONE10 M1 PO; -PRO-AMATINE5 M2 PO; -SPIRIVA RESPIMAT4 G1 INH
[2016-12-14 13:00] LABS: ARTERIAL BLD GAS O2 SATURATION 94.9 % (90.0-100.0); ARTERIAL BLOOD GAS CARBOXY HB 0.9 %sat (0.0-9.0); ARTERIAL BLOOD GAS HCO3 21.6 mmol/L; ARTERIAL BLOOD GAS MET HB 0.9 %sat (0.0-2.0); ARTERIAL BLOOD GAS PCO2 29.6 mmHg (35.0-45.0)
[2016-12-14 13:01] LABS: ARTERIAL BLOOD GAS ALLEN TEST NORMAL; ARTERIAL BLOOD GAS ART SITE RIGHT RADIAL; ARTERIAL BLOOD GAS PO2 75.8 mmHg (80.0-100); ARTERIAL DRAW? YES
[2016-12-14 13:43] LABS: POC - CKMB <1.0 ng/mL (0.0-7.9); POC - TROPONIN <0.05 ng/mL (<=0.05)
[2016-12-14 14:01] LABS: INR 1.2; PARTIAL THROMBOPLASTIN TIME 34.5 SECONDS (23.5-31.3); PROTHROMBIN TIME (PATIENT) 12.9 SECONDS (10.0-11.7)
[2016-12-14 14:08] LABS: ALBUMIN SERUM 2.7 g/dL (3.5-5.0); BILIRUBIN, DIRECT 0.2 mg/dL (0.0-0.2); BILIRUBIN,INDIRECT 0.7 mg/dL (0.0-0.9); BILIRUBIN,TOTAL 0.9 mg/dL (0.2-2.0); BUN/CREATININE RATIO 22.72; CALCIUM SERUM 8.4 mg/dL (8.4-10.2); CREATININE SERUM 1.1 mg/dL (0.6-1.4); GLOM FILT RATE Estimated 73.6 mL/min (>60); MAGNESIUM 2.1 mg/dL (1.6-3.0); POTASSIUM 3.4 mmol/L (3.5-5.1); PROTEIN TOTAL SERUM 8.1 g/dL (6.0-8.3)
[2016-12-14 14:12] LABS: BASOPHIL% 0.3 % (0-2.5); EOSINOPHIL% 0.3 % (0.0-7.0); HEMATOCRIT 35.4 % (38.0-50.0); HEMOGLOBIN 11.7 gm/dL (13.0-16.0); LYMPHOCYTE# 0.7 X10e3 (1.0-3.5); LYMPHOCYTE% 36.8 % (17.0-45.0); MEAN CELL VOLUME 70.6 FL (83-96); MEAN CORPUSCULAR HEMOGLOBIN 23.3 PG (28-34); MEAN CORPUSCULAR HGB CONC 33.1 g/dL (30-36); MEAN PLATELET VOLUME 8.1 FL (6.5-11.5); MONOCYTE# 0.7 X10e3 (0-1.0); NEUTROPHIL# 0.5 X10e3 (1.5-7.1); NEUTROPHIL% 25.6 % (40-75); PLATELET COUNT 208 X10e3 (140-420); RED BLOOD COUNT 5.02 X10e (3.90-5.60); RED CELL DISTRIBUTION WIDTH 16.6 % (11.0-15.5); WHITE BLOOD COUNT 1.8 X10e3 (4.0-10.5)
[2016-12-14 14:31] LABS: DIFF IND YES
[2016-12-14 14:46] LABS: PLATELET ESTIMATE NORMAL (NORMAL); RBC NORMAL YES
[2016-12-14] MEDS ORDERED: PATIENT'S PHARMACY (15:02)
[2016-12-14] MEDS ORDERED: HYDROCODON-ACE1 EAC7 PO (15:03)
[2016-12-14] MEDS ORDERED: ALBUTEROL17 GM INH (15:03)
[2016-12-14] MEDS ORDERED: SPIRIVA RESPIMAT4 G1 INH (15:03)
[2016-12-14 15:19] LABS: URINE SOURCE CLEAN CATCH
[2016-12-14 15:25] LABS: URINE APPEARANCE CLEAR; URINE BLOOD 3+ (NEG); URINE COLOR DK YELLOW; URINE GLUCOSE NEG (NEG); URINE KETONE TRACE (NEG); URINE LEUKOCYTE ESTERASE NEG (NEG); URINE NITRATE NEG (NEG); URINE PH 5.5 (5-8); URINE PROTEIN 1+ (NEG); URINE SPECIFIC GRAVITY 1.024 (1.003-1.035)
[2016-12-14 15:28] LABS: URINE SQUAMOUS EPITHELIAL CELL OCC /[HPF]
[2016-12-14 16:07] LABS: URINE BILIRUBIN NEG (NEG)
[2016-12-14 16:10] LABS: CULTURE INDICATED? YES; URINE BACTERIA AUWI 1+ (NEGATIVE)
[2016-12-14 17:40] LABS: OSMOLALITY,URINE 712 mOsmo/kg (250-900)
[2016-12-14 17:45] LABS: SODIUM URINE RANDOM 23 mmol/L
[2016-12-15 06:59] LABS: BASOPHIL% 0.2 % (0-2.5); EOSINOPHIL% 0.1 % (0.0-7.0); HEMATOCRIT 31.7 % (38.0-50.0); HEMOGLOBIN 10.3 gm/dL (13.0-16.0); LYMPHOCYTE# 0.2 X10e3 (1.0-3.5); LYMPHOCYTE% 32.8 % (17.0-45.0); MEAN CELL VOLUME 71.1 FL (83-96); MEAN CORPUSCULAR HEMOGLOBIN 23.1 PG (28-34); MEAN CORPUSCULAR HGB CONC 32.5 g/dL (30-36); MEAN PLATELET VOLUME 7.9 FL (6.5-11.5); MONOCYTE# 0.1 X10e3 (0-1.0); MONOCYTE% 12.8 % (3.0-12.0); NEUTROPHIL# 0.3 X10e3 (1.5-7.1); NEUTROPHIL% 54.1 % (40-75); PLATELET COUNT 164 X10e3 (140-420); RED BLOOD COUNT 4.46 X10e (3.90-5.60); RED CELL DISTRIBUTION WIDTH 16.5 % (11.0-15.5)
[2016-12-15 07:01] LABS: WHITE BLOOD COUNT 0.6 X10e3 (4.0-10.5)
[2016-12-15 07:02] LABS: DIFF IND NO
[2016-12-15 07:17] LABS: ALBUMIN SERUM 2.1 g/dL (3.5-5.0); BILIRUBIN,TOTAL 0.3 mg/dL (0.2-2.0); BUN/CREATININE RATIO 38.33; CALCIUM SERUM 8.1 mg/dL (8.4-10.2); CREATININE SERUM 0.6 mg/dL (0.6-1.4); GLOM FILT RATE Estimated 110.9 mL/min (>60); MAGNESIUM 1.9 mg/dL (1.6-3.0); POTASSIUM 3.8 mmol/L (3.5-5.1); PROTEIN TOTAL SERUM 6.5 g/dL (6.0-8.3)
[2016-12-16 08:06] LABS: HEMATOCRIT 29.5 % (38.0-50.0); HEMOGLOBIN 9.5 gm/dL (13.0-16.0); MEAN CELL VOLUME 72.1 FL (83-96); MEAN CORPUSCULAR HEMOGLOBIN 23.2 PG (28-34); MEAN CORPUSCULAR HGB CONC 32.2 g/dL (30-36); MEAN PLATELET VOLUME 7.9 FL (6.5-11.5); RED BLOOD COUNT 4.09 X10e (3.90-5.60); RED CELL DISTRIBUTION WIDTH 16.5 % (11.0-15.5)
[2016-12-16 08:34] LABS: ALBUMIN SERUM 2.1 g/dL (3.5-5.0); BILIRUBIN,TOTAL 0.9 mg/dL (0.2-2.0); CALCIUM SERUM 8.2 mg/dL (8.4-10.2); CREATININE SERUM 0.7 mg/dL (0.6-1.4); GLOM FILT RATE Estimated 104.1 mL/min (>60); MAGNESIUM 2.2 mg/dL (1.6-3.0); POTASSIUM 3.7 mmol/L (3.5-5.1); PROTEIN TOTAL SERUM 6.1 g/dL (6.0-8.3)
[2016-12-17 07:23] LABS: THYROID STIMULATING HORMONE 0.49 uIU/ml (0.34-5.60)
[2016-12-17 07:30] LABS: FREE THYROXIN (T4) 1.55 ng/dL (0.58-1.64)
[2016-12-17 07:57] LABS: BUN/CREATININE RATIO 24.28; CALCIUM SERUM 8.3 mg/dL (8.4-10.2); CREATININE SERUM 0.7 mg/dL (0.6-1.4); GLOM FILT RATE Estimated 104.1 mL/min (>60); POTASSIUM 4.4 mmol/L (3.5-5.1)
[2016-12-17 09:05] LABS: HEMATOCRIT 31.2 % (38.0-50.0); HEMOGLOBIN 9.9 gm/dL (13.0-16.0); MEAN CELL VOLUME 72.8 FL (83-96); MEAN CORPUSCULAR HEMOGLOBIN 23.1 PG (28-34); MEAN CORPUSCULAR HGB CONC 31.8 g/dL (30-36); MEAN PLATELET VOLUME 8.3 FL (6.5-11.5); RED BLOOD COUNT 4.29 X10e (3.90-5.60); RED CELL DISTRIBUTION WIDTH 16.7 % (11.0-15.5); WHITE BLOOD COUNT 1.4 X10e3 (4.0-10.5)
[2016-12-18 08:10] LABS: BASOPHIL% 0.2 % (0-2.5); HEMOGLOBIN 9.4 gm/dL (13.0-16.0); LYMPHOCYTE# 0.3 X10e3 (1.0-3.5); LYMPHOCYTE% 15.7 % (17.0-45.0); MEAN CELL VOLUME 71.6 FL (83-96); MEAN CORPUSCULAR HEMOGLOBIN 23.3 PG (28-34); MEAN CORPUSCULAR HGB CONC 32.5 g/dL (30-36); MONOCYTE# 0.2 X10e3 (0-1.0); MONOCYTE% 10.5 % (3.0-12.0); NEUTROPHIL# 1.3 X10e3 (1.5-7.1); NEUTROPHIL% 73.6 % (40-75); PLATELET COUNT 282 X10e3 (140-420); RED BLOOD COUNT 4.06 X10e (3.90-5.60); WHITE BLOOD COUNT 1.8 X10e3 (4.0-10.5)
[2016-12-18 08:17] LABS: DIFF IND YES
[2016-12-18 08:31] LABS: BUN/CREATININE RATIO 25.71; CALCIUM SERUM 8.5 mg/dL (8.4-10.2); CREATININE SERUM 0.7 mg/dL (0.6-1.4); GLOM FILT RATE Estimated 104.1 mL/min (>60); POTASSIUM 4.9 mmol/L (3.5-5.1)
[2016-12-18 08:42] LABS: ANISOCYTOSIS SL; HYPOCHROMIA SL; MICROCYTOSIS SL; PLATELET ESTIMATE NORMAL (NORMAL)
[2016-12-18 15:06] LABS: BODY FLUID APPEARANCE CLEAR; BODY FLUID SOURCE BRONCHIAL LAVAGE
[2016-12-18 15:07] LABS: BF TOTAL NUCLEATED CELL COUNT 2 CMM (0-100)
[2016-12-18 15:08] LABS: BODY FLUID RBC <10000 CMM
[2016-12-19 05:40] LABS: HEMATOCRIT 31.4 % (38.0-50.0); MEAN CELL VOLUME 71.4 FL (83-96); MEAN CORPUSCULAR HEMOGLOBIN 22.8 PG (28-34); MEAN CORPUSCULAR HGB CONC 31.9 g/dL (30-36); MEAN PLATELET VOLUME 7.7 FL (6.5-11.5); RED BLOOD COUNT 4.39 X10e (3.90-5.60); RED CELL DISTRIBUTION WIDTH 16.8 % (11.0-15.5); WHITE BLOOD COUNT 1.3 X10e3 (4.0-10.5)
[2016-12-19 06:15] LABS: BUN/CREATININE RATIO 31.66; CALCIUM SERUM 8.5 mg/dL (8.4-10.2); CREATININE SERUM 0.6 mg/dL (0.6-1.4); GLOM FILT RATE Estimated 110.9 mL/min (>60); POTASSIUM 4.2 mmol/L (3.5-5.1)
[2016-12-21 05:50] LABS: HEMATOCRIT 30.9 % (38.0-50.0); HEMOGLOBIN 10.4 gm/dL (13.0-16.0); MEAN CELL VOLUME 71.5 FL (83-96); MEAN CORPUSCULAR HGB CONC 33.6 g/dL (30-36); MEAN PLATELET VOLUME 7.4 FL (6.5-11.5); RED BLOOD COUNT 4.33 X10e (3.90-5.60); RED CELL DISTRIBUTION WIDTH 16.5 % (11.0-15.5)
[2016-12-21 06:21] LABS: ALBUMIN SERUM 2.4 g/dL (3.5-5.0); BILIRUBIN,TOTAL 0.4 mg/dL (0.2-2.0); CALCIUM SERUM 7.6 mg/dL (8.4-10.2); CREATININE SERUM 0.5 mg/dL (0.6-1.4); GLOM FILT RATE Estimated 119.5 mL/min (>60); POTASSIUM 3.3 mmol/L (3.5-5.1); PROTEIN TOTAL SERUM 5.5 g/dL (6.0-8.3)
[2016-12-21] MEDS ORDERED: NICOTINE PATCH1 EACH TD (12:30)
[2016-12-21] MEDS ORDERED: PRO-AMATINE5 M2 PO (12:32)
[2016-12-21] MEDS ORDERED: DIFLUCAN100 MG PO (12:35)
[2016-12-21] MEDS ORDERED: PREDNISONE10 M1 PO (12:38)
== END 2016-12-21 13:36 | disposition home or self-care (01) | DRG 166 ==
LOC: CED 12:00 → C5C 16:10 → CEDOF 16:10 → CED 16:45 → C5C 16:45 → CEDOF 21:22 → C5C 21:22
PROVIDERS: Family Medicine; Hospitalist; Internal Medicine; Internal Medicine Endocrinology, Diabetes & Metabolism; Student in an Organized Health Care Education/Training Program
PROC: 0DB38ZX Excision of Lower Esophagus, Via Natural or Artificial Opening Endoscopic, Diagnostic (ICD-10-PCS; 2016-12-16)
PROC: 0DB28ZX Excision of Middle Esophagus, Via Natural or Artificial Opening Endoscopic, Diagnostic (ICD-10-PCS; 2016-12-16 14:45)
PROC: 0B9D8ZX Drainage of Right Middle Lung Lobe, Via Natural or Artificial Opening Endoscopic, Diagnostic (ICD-10-PCS; principal; 2016-12-18 13:22)
DX: J44.1 Chronic obstructive pulmonary disease with (acute) exacerbation (principal); J18.9 Pneumonia, unspecified organism; E43 Unspecified severe protein-calorie malnutrition; B37.81 Candidal esophagitis; D70.9 Neutropenia, unspecified; C92.Z0 Other myeloid leukemia not having achieved remission; E87.1 Hypo-osmolality and hyponatremia; Z68.1 Body mass index [BMI] 19.9 or less, adult; E27.40 Unspecified adrenocortical insufficiency; J44.0 Chronic obstructive pulmonary disease with (acute) lower respiratory infection; E86.0 Dehydration; E87.6 Hypokalemia; R13.10 Dysphagia, unspecified; R91.8 Other nonspecific abnormal finding of lung field; Z86.19 Personal history of other infectious and parasitic diseases; K22.5 Diverticulum of esophagus, acquired; M06.9 Rheumatoid arthritis, unspecified; I95.9 Hypotension, unspecified; K29.70 Gastritis, unspecified, without bleeding; N40.0 Benign prostatic hyperplasia without lower urinary tract symptoms; F17.210 Nicotine dependence, cigarettes, uncomplicated; N18.3 Chronic kidney disease, stage 3 (moderate); Z88.8 Allergy status to other drugs, medicaments and biological substances; Z82.49 Family history of ischemic heart disease and other diseases of the circulatory system
CPT/HCPCS: 36415; 36600; 71010; 71250; 80048; 80053; 80076; 81003; 82308; 82533; 82553; 82803; 82947; 83605; 83735; 83930; 83935; 84300; 84439; 84443; 84484; 85025; 85027; 85610; 85730; 87040; 87070; 87086; 87102; 87116; 87205; 87206; 87252; 87254; 87278; 88104; 88108; 88312; 89051; 92526; 92610; 93005; 94640; 94664; 94760; 96360; 97110; 97161; 97166; 97530; 99285; C9113; G8978-GP; G8979-GP; G8980-GP; G8988-GO; G8989-GO; G8996-GN; G8997-GN; G8998-GN; J0171; J1450; J2250; J2920; J2930; J3010; J3475; Q9968